=== PATIENT | female | born 1960 | race Caucasian/White ===

== ENCOUNTER 2019-07-27 15:47 | Outpatient (CLI) | payer MEDICARE, MEDICAID, SELFPAY ==
--- NOTE | ~2019-07-27 | CT_ITS ---
EXAMINATION: CT abdomen pelvis wo con DATE: 07/27/2019 16:05 INDICATION: Hematuria TECHNIQUE: Computed tomography (CT) of the abdomen and pelvis was performed without intravenous contr ast. The dose-length product was 1283.26 mGy-cm. Automated exposure control and iterative reconstruct ion technique were employed. COMPARISON: None. FINDINGS: There is right middle lobe atelectasis/scarring. Heart size normal. There is coronary ather osclerosis. There is atherosclerosis of the aorta. There are calcified granulomas of the liver and spleen. There are gallstones. The pancreas and adrena l glands are unremarkable. There are multiple bilateral renal stones. No ureteral stones or hydroneph rosis. Nonobstructing bowel gas pattern. No evidence for appendicitis. No free air or free fluid. There is a curvilinear radiopaque material posterior to the rectum, possibly postsurgical. Moderate lower thora cic and mild lumbar spondylosis. IMPRESSION: 1. Nonobstructing bilateral nephrolithiasis. 2: Cholelithiasis. 3: Right middle lobe atelectasis/scarring. Reviewed, dictated and finalized at location A.
== END 2019-07-27 15:48 | disposition home or self-care (01) ==
PROVIDERS: PCP Internal Medicine; Visit Provider Internal Medicine
DX: R31.9 Hematuria, unspecified (principal); N20.0 Calculus of kidney; K80.20 Calculus of gallbladder without cholecystitis without obstruction; J98.11 Atelectasis
CPT/HCPCS: 74176

== ENCOUNTER 2020-03-17 12:38 | Outpatient (CLI) | payer MEDICARE, MEDICAID, SELFPAY ==
--- NOTE | ~2020-03-17 | XR_ITS ---
EXAMINATION: XR hand LT min 3V INDICATION: Left hand pain TECHNIQUE: Three views of the left hand are obtained. COMPARISON: None available FINDINGS: There is severe osteoarthritis at the triscaphe and first carpometacarpal joints. Moderate osteoarthritis is noted in multiple interphalangeal joints. There is an old ulnar styloid avulsion fr acture with nonunion. No acute fracture is identified. The soft tissues are unremarkable. IMPRESSION: 1. Osteoarthritis without acute osseous abnormality. Reviewed, dictated and finalized at location A. 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
== END 2020-03-17 12:39 | disposition home or self-care (01) ==
LOC: ANHBWCIMG 12:41
PROVIDERS: PCP Internal Medicine; Visit Provider Orthopaedic Surgery
DX: M19.042 Primary osteoarthritis, left hand (principal)
CPT/HCPCS: 73130

== ENCOUNTER 2020-03-31 21:07 | Emergency (ER) | payer MEDICARE, MEDICAID, SELFPAY ==
--- NOTE | ~2020-03-31 | CT_ITS ---
EXAMINATION: CT abdomen pelvis wo con DATE: 03/31/2020 22:24 INDICATION: Flank pain. Ureteral stent removal today. TECHNIQUE: Computed tomography (CT) of the abdomen and pelvis was performed without intravenous contr ast. Automated exposure control and iterative reconstruction technique were employed. The dose-length product was 1320.77 mGy-cm. COMPARISON: CT abdomen and pelvis 07/27/2019 FINDINGS: The visualized portions of the lung bases demonstrate mild atelectasis. There are centrilob ular nodules in basilar right lower lobe, consistent with pneumonia. No pleural effusion. The heart s ize is normal. No pericardial effusion. Calcifications in the liver and spleen are consistent with ol d granulomatous disease. There are gallstones in the gallbladder, which is normal in size. The pancre as and right adrenal gland are normal. There is chronic thickening of left adrenal gland, likely lanre gn. There is medullary nephrocalcinosis bilaterally. There are approximately 8 stones in right kidney measuring up to 4 mm. There are greater than 10 stones in left kidney. The largest stone or cluster of stones measures 7 mm. There is mild left hydronephrosis and hydroureter. There is a focus of gas i n the bladder lumen from recent instrumentation. There is fat stranding around the left ureter, consi stent with edema versus inflammation. There are no dilated loops of bowel. The appendix is normal. Th ere are no pathologically enlarged lymph nodes. Prominent fat in right inguinal canal may be a hernia . There is no free intraperitoneal fluid. There is severe osteoarthritis of the hips. There is chroni c anterior wedging of multiple thoracic vertebral bodies. There is moderate thoracolumbar spondylosis . IMPRESSION: 1. Bilateral nonobstructing kidney stones. 2. Mild left hydronephrosis and hydroureter. Fat stranding around the left ureter may be edema or inf lammation. 3. Mild pneumonia in basilar right lower lobe. Reviewed, dictated and finalized at location A. 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 Bilateral nonobstructing kidney stones. 2. Mild left hydronephrosis and hydroureter. Fat stranding around the left uret er may be edema or inflammation. 3. Mild pneumonia in basilar right lower lobe.
[2020-03-31 21:10] VITALS: BP 184/105; PULSE 100; RESP 20; TEMP 36.2; O2SAT 100
[2020-03-31] MEDS: SODIUM CHLORIDE 0.9% IV 1,000 ML 999 ML IV CONT (22:08)
[2020-03-31] MEDS: HYDROmorphone HCL INJ (*CRX) 1 MG/ML SYR IV PUSH (22:08)
[2020-03-31] MEDS: ONDANSETRON INJ 4 MG/2 ML VIAL IV PUSH (22:08)
--- NOTE | 2020-03-31 22:19 | ED.GENADULT ---
HPI - General Adult General Chief complaint: Urogenital-Female Stated complaint: left sided flank pain Time Seen by Provider: 03/31/20 21:57 History of Present Illness HPI narrative: Patient 59-year-old female who presents the emergency department with chief complaint of left flank pain. Patient reports that she had a lithotripsy and stent placement at [facility] and reported that today she was told that she could remove the stent. Patient states that after she remove the stent approximately 45 minutes later she started having left-sided flank pain. The patient states the pain feels as though whenever she is passing stones but this actually feels worse than it did initially the patient denies fever denies chills Related Data Home Medications Medication Instructions Recorded Confirmed albuterol sulfate 90 mcg/actuation 1 inh INHALATION Q4H 03/17/20 03/24/20 aerosol inhaler citalopram 40 mg tablet 40 mg PO DAILY 03/17/20 03/24/20 cyclobenzaprine 10 mg tablet 10 mg PO TID 03/17/20 03/24/20 meloxicam 15 mg PO DAILY 03/17/20 03/24/20 omeprazole magnesium 40 mg PO DAILY 03/17/20 03/24/20 trazodone 100 mg tablet 100 mg PO DAILY 03/17/20 03/24/20 irbesartan 75 mg PO DAILY 03/24/20 03/24/20 Allergies Allergy/AdvReac Type Severity Reaction Status Date / Time No Known Allergies Allergy Verified 03/31/20 21:08 Review of Systems Review of Systems: Narrative: A 10 system review of systems was completed on the patient and is negative except for what is stated in the HPI. Nursing and ancillary documentation was reviewed. [facility] Past Medical History Medical History Anxiety Arthritis Arthritis of carpometacarpal (CMC) joint of left thumb Congestion of nasal sinus Constipation GERD (gastroesophageal reflux disease) Kidney stones Trigger finger, left ring finger Urinary frequency Wears glasses Weight gain Wheezing Surgical History Surgical History History of cervical spinal surgery 2 vertebrae in neck replaced 2013 History of hand surgery Ring trigger finger 2015, Dr. Correa History of left knee surgery Dr. Correa, 1997 History of shoulder surgery Right shoulder 2003, collar bone Dr. Correa History of surgery fistula repair [id number] History of surgery on wrist left wrist ganglion cyst removal Family History Family History Sibling Family history of lung cancer Other Family history of allergic disorder Family history of malignant neoplasm Hypertension Lung disease Social History Social History Smoking packs per day: 0.75 Smoking cigarettes per day: 15.0 Years smoked: 45 Smoking pack-years: 33.75 Smoking status: Current every day smoker Tobacco type: cigarettes Alcohol intake: never Substance use: current Substance use type: marijuana Gender identity (if verbalized by the patient): Female Spiritual care concerns: No Comments Past medical history significant for kidney stones Surgical history is lithotripsy and ureteral stent placement Exam Narrative: Exam Narrative: GENERAL: Well-appearing, well-nourished, and in moderate pain distress. HEAD: Normocephalic, atraumatic. EYES: PERRLA and EOMI. ENT: Nares clear, no rhinorrhea or epistaxis. Mucous membranes moist. NECK: Supple. CHEST: Clear to auscultation. No respiratory distress. HEART: Regular rate and rhythm. No murmur heard. Normal peripheral pulses. ABDOMEN: Soft, nontender, nondistended, normal active bowel sounds. EXTREMITIES: Normal range of motion. No edema. SKIN: Warm, dry, no rash. NEURO: No focal deficits. Alert and oriented x3. PSYCH: Normal mood and affect. Course Vital Signs Vital signs: Vital Signs Temperature 36.2 C L 03/31/20 21:1
[2020-03-31 23:00] VITALS: BP 179/94; PULSE 89; RESP 18; O2SAT 98
[2020-03-31 23:01] LABS: Basophils Absolute Auto 0.1 K/mm3 (0.0-0.1); Basophils Percent Auto 0.4 % (0.2-1.2); Eosinophils Absolute Auto 0.2 K/mm3 (0-0.3); Eosinophils Percent Auto 1.3 % (0-4.4); Hematocrit 44.2 % (37.0-47.0); Hemoglobin 14.5 g/dL (12.0-15.0); Immature Granulocyte Percent A 0.5 % (0-0.5); Lymphocytes Absolute Auto 2.52 K/mm3 (0.9-3.2); Lymphocytes Percent Auto 13.8 % (18.3-44.2); Mean Corpuscular HGB Conc 32.8 g/dl (32-36); Mean Corpuscular Hemoglobin 31.3 pg (26-34); Mean Corpuscular Volume 95.5 fl (80-100); Mean Platelet Volume 9.9 fl (7.4-10.4); Monocytes Absolute Auto 1.1 K/mm3 (0.1-0.6); Monocytes Percent Auto 6.1 % (2.6-8.5); Neutrophils Absolute Auto 14.2 K/mm3 (1.3-6.7); Neutrophils Percent Auto 77.9 % (45.5-73.1); Platelet Count Result 291 k/mm3 (150-375); Red Blood Count 4.63 M/mm3 (4.2-5.4); Red Cell Distribution Width 12.4 % (11.5-14.5); White Blood Count 18.2 K/mm3 (4.5-10.0)
[2020-03-31 23:12] LABS: Anion Gap 6 mmol/L (8-16); Blood Urea Nitrogen 24 mg/dL (7-17); Carbon Dioxide 27 mmol/L (22-30); Chloride 105 mmol/L (98-107); Estimated CRCL calculation 68 ml/min; Estimated Glomerular Filt Rate > 60; Glucose 114 mg/dL (65-105); Potassium 3.8 mmol/L (3.4-5.0); Sodium 138 mmol/L (137-145)
[2020-04-01 00:35] LABS: Add Urine Microscopic? YES; Appearance Urine Clear (Clear); Bacteria Urine Trace /hpf; Bilirubin Urine Negative (Negative); Blood Urine 3+ (Negative); Color Urine Yellow (Yellow); Glucose Urine UA Negative (Negative); Ketones Urine Negative (Negative); Leukocyte Esterase Ur 2+ LEU/UL (Negative); Mucus Urine Rare /lpf; Nitrate Urine Negative (Negative); Protein Urine 2+ mg/dL (Negative); RBC Urine >75 /hpf (0-2); Specific Grav Ur 1.008 (1.001-1.035); Urobilinogen Urine Negative mg/dL (<2.0); WBC Urine >75 /hpf
[2020-04-01] MEDS: HYDROmorphone HCL INJ (*CRX) 1 MG/ML SYR IM (00:47)
[2020-04-01 01:10] VITALS: BP 115/81; PULSE 99; RESP 18; O2SAT 93
== END 2020-04-01 01:10 | disposition home or self-care (01) ==
PROVIDERS: Emergency Provider Emergency Medicine; PCP Internal Medicine
DX: N39.0 Urinary tract infection, site not specified (principal); J18.9 Pneumonia, unspecified organism; N13.2 Hydronephrosis with renal and ureteral calculous obstruction; M18.9 Osteoarthritis of first carpometacarpal joint, unspecified; K21.9 Gastro-esophageal reflux disease without esophagitis; Z87.442 Personal history of urinary calculi; F41.9 Anxiety disorder, unspecified; F17.210 Nicotine dependence, cigarettes, uncomplicated
CPT/HCPCS: 36415; 74176; 80048; 81001; 85025; 87086; 96361; 96372; 96374; 96375; 99284; A9270; J1170; J2405; J7030

== ENCOUNTER → 2020-06-02 04:34 | Outpatient (CLI) | payer MEDICARE, MEDICAID, SELFPAY ==
[2020-06-02 19:57] LABS: SARS-CoV-2 RNA PCR Negative
== END ==
PROVIDERS: PCP Internal Medicine; Visit Provider Orthopaedic Surgery
DX: Z01.812 Encounter for preprocedural laboratory examination (principal); Z20.822 Contact with and (suspected) exposure to COVID-19
CPT/HCPCS: C9803; U0003; U0005

== ENCOUNTER 2020-06-02 08:34 | Outpatient (CLI) | payer MEDICARE, MEDICAID, SELFPAY ==
--- NOTE | 2020-06-02 10:30 | ECG_ITS ---
Measurements Intervals [place] Rate: 79 P: 42 CO: 150 QRS: 42 QRSD: 71 T: 39 QT: 377 QTc: 433 Interpretive Statements SINUS RHYTHM BASELINE ARTIFACT- I, II, III, AVR, AVL, AVF NORMAL ECG Electronically Signed On 06-02-2020 8:54:02 CDT by Moe Banks D.O.
== END 2020-06-02 08:35 | disposition home or self-care (01) ==
LOC: ANHSURGERY 08:39
PROVIDERS: PCP Internal Medicine; Visit Provider Orthopaedic Surgery
DX: Z01.810 Encounter for preprocedural cardiovascular examination (principal); Z87.891 Personal history of nicotine dependence; I10 Essential (primary) hypertension
CPT/HCPCS: 93005

== ENCOUNTER 2020-06-02 09:11 | Outpatient (CLI) | payer MEDICARE, MEDICAID, SELFPAY ==
--- NOTE | ~2020-06-02 | XR_ITS ---
XR chest 2V 06/02/2020 09:37 Indication: Pneumonia. Procedure: 06/02/2020 Comparison: 01/17/2018 Findings: There is right middle lobe airspace consolidation. Heart size normal. Left lung clear. No p leural effusion or pneumothorax. No acute osseous abnormality. Impression: 1: Right middle lobe airspace disease, which may represent a combination of pneumonia and/or atelecta sis. Reviewed, dictated and finalized at location B. Impression: 1: Right middle lobe airspace disease, which may represent a combination of pne umonia and/or atelectasis.
== END 2020-06-02 09:12 | disposition home or self-care (01) ==
LOC: ANHIMG 09:24
PROVIDERS: PCP Internal Medicine; Visit Provider Internal Medicine
DX: J18.9 Pneumonia, unspecified organism (principal)
CPT/HCPCS: 71046

== ENCOUNTER 2020-06-05 01:33 | Day surgery (SDC) | payer MEDICARE, MEDICAID, SELFPAY ==
[2020-03-24 12:38] VITALS: BMI 39.0
[2020-05-26 12:29] VITALS: BMI 38.7
--- NOTE | 2020-05-26 12:32 | PC.NURSE ---
Pt states no changes in medications since interview. Medical history information updated. New Covid date/time and pre-op instructions reviewed with pt. Pt denies questions at this time.
--- NOTE | 2020-06-04 09:08 | PM.IMHP ---
H&P: HPI History of Present Illness Date/Time: 06/04/20 09:08 Chief Complaint: Left thumb and ring finger pain Narrative: 59-year-old woman with left thumb pain and trigger deformity of the left ring finger. Continued symptoms despite conservative treatment. Difficulty with gripping and use of the hand. Presents now for operative treatment. Review of Systems Constitutional: Constitutional: Denies fever(s) Eyes: Eyes: Denies blurry vision ENT: Reports Normal hearing present Cardiovascular: Cardiovascular: Denies chest pain and Denies dyspnea Respiratory: Respiratory: Denies dyspnea and Denies wheezing Gastrointestinal: Gastrointestinal: Denies abdominal pain Genitourinary: Genitourinary: Denies urinary urgency Musculoskeletal: Musculoskeletal: Reports as per HPI and Denies numbness Integumentary/Breasts: Skin/Breast: Denies changing lesions and Denies sores Neurologic: Reports Normal hearing present, Denies behavioral changes, Denies confusion, Denies numbness and Denies convulsions Psychiatric: Psychiatric: Denies behavioral changes, Denies confusion and Denies hallucinations Endocrine: Endocrine: Denies heat intolerance Hematologic/Lymphatic: Hematologic/Lymphatic: Denies easy bleeding Allergic/Immunologic: Allergic/Immunologic: Denies wheezing PMF Past Medical History Medical History Anxiety Arthritis Arthritis of carpometacarpal (CMC) joint of left thumb Congestion of nasal sinus Constipation GERD (gastroesophageal reflux disease) Kidney stones Trigger finger, left ring finger Urinary frequency Wears glasses Weight gain Wheezing Surgical History Surgical History History of cervical spinal surgery 2 vertebrae in neck replaced 2013 History of hand surgery Ring trigger finger 2015, Dr. Correa History of left knee surgery Dr. Correa, 1997 History of shoulder surgery Right shoulder 2004, collar bone Dr. Correa History of surgery fistula repair [id number] History of surgery on wrist left wrist ganglion cyst removal Family History Family History Sibling Family history of lung cancer Other Family history of allergic disorder Family history of malignant neoplasm Hypertension Lung disease Social History Social History Smoking packs per day: 0.75 Smoking cigarettes per day: 15.0 Years smoked: 45 Smoking pack-years: 33.75 Smoking status: Current every day smoker Tobacco type: cigarettes Alcohol intake: never Substance use: current Substance use type: marijuana Gender identity (if verbalized by the patient): Female Spiritual care concerns: No Meds Home Medications and Allergies Home Medications Medication Instructions Recorded Confirmed Type albuterol sulfate 90 mcg/actuation 1 inh INHALATION Q4H 03/17/20 05/26/20 History aerosol inhaler citalopram 40 mg tablet 40 mg PO DAILY 03/17/20 05/26/20 History cyclobenzaprine 10 mg tablet 10 mg PO TID 03/17/20 05/26/20 History meloxicam 15 mg PO DAILY 03/17/20 05/26/20 History omeprazole magnesium [Prilosec OTC] 40 mg PO DAILY 03/17/20 05/26/20 History trazodone 100 mg tablet 100 mg PO DAILY 03/17/20 05/26/20 History irbesartan 75 mg PO DAILY 03/24/20 05/26/20 History Allergies Allergy/AdvReac Type Severity Reaction Status Date / Time No Known Allergies Allergy Verified 03/31/20 21:08 Exam Const: General: healthy appearing; No in distress or confusion Orientation/consciousness: oriented to person, oriented to place, oriented to time and No confusion HENMT: Head: normal to inspection, normocephalic and atraumatic Eyes: Conjunctivae: conjunctivae normal Sclera: sclerae normal Neck: Neck: supple and nontender Resp: Effort & Inspection: normal respiratory effort
--- NOTE | 2020-06-04 11:02 | WPDANESEPPF ---
Anes - Initial Pre Proc Eval Procedure: Operation Date: 06/05/20 07:30 Proposed Procedures p Left Thumb Carpal Metacarpal Arthroplasty, Release Left Ring Trigger Finger - Stevie Lee MD Date/Time: 06/04/20 11:02 Surgeon: Stevie Lee MD Pre Op Diagnosis: Left Thumb CMC Arthritis, Left Trigger Ring Finger Patient Data Age: 59 Gender: F Height: 1.61 m Weight: 100.7 kg Allergies Allergy/AdvReac Type Severity Reaction Status Date / Time No Known Allergies Allergy Verified 06/05/20 06:07 Home Medications Medication Instructions Recorded Confirmed Type albuterol sulfate 90 mcg/actuation 1 inh INHALATION Q4H 03/17/20 06/05/20 History aerosol inhaler citalopram 40 mg tablet 40 mg PO DAILY 03/17/20 06/05/20 History cyclobenzaprine 10 mg tablet 10 mg PO TID 03/17/20 06/05/20 History meloxicam 15 mg PO DAILY 03/17/20 06/05/20 History omeprazole magnesium [Prilosec OTC] 40 mg PO DAILY 03/17/20 06/05/20 History trazodone 100 mg tablet 100 mg PO DAILY 03/17/20 06/05/20 History irbesartan 75 mg PO DAILY 03/24/20 06/05/20 History Patient hx anesthesia problems: none Family hx anesthesia problems: none PMFSH Past Medical History Medical History (Updated 06/04/20 @ 11:03 by Collin Suggs MD) Anxiety Arthritis Arthritis of carpometacarpal (CMC) joint of left thumb Congestion of nasal sinus Constipation GERD (gastroesophageal reflux disease) Kidney stones Obesity Trigger finger, left ring finger Urinary frequency Wears glasses Weight gain Wheezing Surgical History Surgical History History of cervical spinal surgery 2 vertebrae in neck replaced 2013 History of hand surgery Ring trigger finger 2015, Dr. Correa History of left knee surgery Dr. Correa, 1997 History of shoulder surgery Right shoulder 2003, collar bone Dr. Correa History of surgery fistula repair [id number] History of surgery on wrist left wrist ganglion cyst removal Family History Family History Sibling Family history of lung cancer Other Family history of allergic disorder Family history of malignant neoplasm Hypertension Lung disease Social History Social History Smoking packs per day: 0.75 Smoking cigarettes per day: 15.0 Years smoked: 45 Smoking pack-years: 33.75 Smoking status: Current every day smoker Tobacco type: cigarettes Alcohol intake: never Substance use: current Substance use type: marijuana Living arrangements: alone Gender identity (if verbalized by the patient): Female Spiritual care concerns: No Anes - Eval Final PreProcedure Day of Procedure 06/04/20 11:02 Patient weight: obese Heart: regular rate and rhythm Lungs: clear to auscultation and normal air movement Airway: Mallampati scale class II Neurological: alert and oriented Last oral intake: >/= 8 hours ASA classification: III Emergent: no Anesthetic plan: proceed Anesthesia type and monitoring: general GIVS and LMA Informed Consent: The patient's anesthetic plan and its attendant risks and benefits were discussed with the patient/family/POA. Questions were solicited and answers provided to the satisfaction of the patient/family/POA.
--- NOTE | 2020-06-04 11:07 | WPDANESPNB ---
Anes - Peripheral Nerve Block Date/Time: 06/04/20 11:07 I have discussed with the patient/family/POA the placement of a peripheral nerve block for post-operative pain management, including associated risks, benefits, complications, and side effects. Alternative methods of post-operative analgesia were detailed. Questions were solicited and answers provided to the satisfaction of the patient/family/POA. Time-Out: A pre-procedural Time-Out was completed immediately before starting the procedure and confirmed: Patient Identification, Site, Procedure, Patient Position and the Availability of Requisite Equipment. Clinical Indications: Acute post-operative pain management requested by the operative surgeon. Nerve Block Insertion Note Needle: 22 gauge, stimulating, insulated echogenic needle.
[2020-06-05] VITALS (12 sets, daily range): BP systolic 101–142; BP diastolic 62–91; PULSE 67–88; RESP 16–20; TEMP 36–36.3; O2SAT 91–100
--- NOTE | ~2020-06-05 | XR_ITS ---
XR surgery orthopedic 06/05/2020 08:40 Indication: Left thumb arthroplasty Procedure: 3 fluoroscopic views left wrist. 27 seconds of fluoroscopy. Comparison: No prior studies for comparison. Findings: There are surgical changes consistent with resection of the trapezium. There is associated soft tissue gas. Please refer to procedural report for details. Impression: 1: Status post recent resection of the trapezium. Reviewed, dictated and finalized at location B. Impression: 1: Status post recent resection of the trapezium.
--- NOTE | 2020-06-05 06:43 | WPDHPUPDATE1 ---
History and Physical Update Update Date/Time: 06/05/20 06:43 History and Physical has been reviewed, including an updated exam of the patient. There are NO changes in the patient's condition. Covid test negative. Risks, benefits, and alternatives have been discussed and questions answered. Patient agrees to proceed with procedure.
[2020-06-05] MEDS: LACTATED RINGERS 1,000 ML 30 ML IV CONT ×2 (06:50→08:54)
[2020-06-05] MEDS: ACETAMINOPHEN 500 MG TABLET 1000 MG PO (06:50)
[2020-06-05] MEDS: KETOROLAC 15 MG/ML VIAL (*BKC) IV PUSH (06:52)
[2020-06-05] MEDS: ceFAZolin 2 GM/D5W 50 ML 2 GM/50 ML BAG IVPB (07:27)
[2020-06-05] MEDS: BUPIVACAINE HCL 0.5% PF 30 ML VIAL INFILTRATE (07:57)
--- NOTE | 2020-06-05 09:17 | P.OP_ITS ---
Procedure Note - Detailed Date of procedure: 06/05/20 Pre-op diagnosis: Left Thumb CMC Arthritis, Left Trigger Ring Finger Post-op diagnosis: same Procedure performed: Left CMC arthroplasty with trapezii ectomy, ring trigger finger release Description of procedure: Indications: Patient is a 59-year-old woman with left thumb carpometacarpal joint arthritis. She has failed conservative treatment. In addition, trigger deformity of the ring finger of the left hand. Previous injection with some relief. Now with recurrence of symptoms. She presents for operative treatment of both. What was done: Patient identified in the preoperative holding. Informed consent given. Operative extremity marked. Patient received intravenous antibiotics. Patient brought to the operating room where underwent general anesthetic by anesthesia team. Positioned supine on operating room table. Time-out performed confirming the patient, site of the surgery and the plan. Left upper extremity prepped draped usual sterile surgical fashion using a ChloraPrep skin solution. Hand and wrist exsanguinated and an arm tourniquet inflated to 250 mmHg. Longitudinal incision made at the border between the palmar and dorsal skin over the base of the thumb with a 15 blade knife. Hemostasis controlled electrocautery. Care taken to retract the neurovascular elements. Capsule was incised line with skin incision. The trapezium was identified with use of fluoroscopy. We then shelled out the trapezium as 1 unit and this. Suspension plasty then performed with the Arthrex internal brace. A guide hole was placed in base of the 2nd metatarsal. Second hole placed at the base of 1st metatarsal. The suture bridge was then attached with PushLock anchors. Good suspension noted. The thumb was held and abducted extended position for the repair. Wound thoroughly irrigated with antibiotic solution. The tourniquet was released meticulous hemostasis obtained. Capsule then repaired with 3 O Monocryl interrupted suture. Subcutaneous tissue repaired for interrupted 3 O Monocryl suture and skin repaired with 4 O nylon running suture. Ring finger then addressed. Incision made using the palmar crease over the A1 ana with a 15 blade knife. Hemostasis controlled electrocautery. Retractors placed and the flexor tendon and A1 ana sheath identified. Release of the A1 ana under direct visualization with a 15 blade knife using a elevator to protect the tendon deep to the sheath. The finger then taken through range of motion and noted to be released. Tendon itself inspected and noted to have mild degenerative changes. Wound thoroughly irrigated and closed with 4 0 nylon interrupted suture. Sterile dressing applied. Padded splint then applied. The patient was then woken from anesthesia, extubated and taken to the recovery room in stable condition. All sponge, needle, instrument counts were correct at the end of the case. Implants: Arthrex 2.0 mm internal brace. 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
[2020-06-05] MEDS: oxyCODONE HCL (*CRX) 5 MG TAB IR PO (11:00)
== END 2020-06-05 11:51 | disposition home or self-care (01) ==
PROVIDERS: PCP Internal Medicine; Visit Provider Orthopaedic Surgery
PROC: (CPT 25447; principal; 2020-06-05 07:30)
DX: M18.9 Osteoarthritis of first carpometacarpal joint, unspecified (principal); M65.342 Trigger finger, left ring finger; K21.9 Gastro-esophageal reflux disease without esophagitis; F32.9 Major depressive disorder, single episode, unspecified; E66.9 Obesity, unspecified; Z68.38 Body mass index [BMI] 38.0-38.9, adult; F17.210 Nicotine dependence, cigarettes, uncomplicated
CPT/HCPCS: 25447; 26055; 71046; 93005; A4565; A9270; C9803; J0690; J1100; J1885; J2250; J2405; J2704; J3010; J7120; U0003; U0005

== ENCOUNTER 2020-07-04 13:31 | Outpatient (CLI) | payer MEDICARE, MEDICAID, SELFPAY ==
--- NOTE | ~2020-07-04 | CT_ITS ---
EXAMINATION: CT diagnostic chest wo con DATE: 07/04/2020 13:52 INDICATION: Infiltrate of the lung TECHNIQUE: Computed tomography (CT) of the chest was performed without intravenous contrast. The dose -length product (DLP) was 938.72 mGy-cm. Automated exposure control and iterative reconstruction tech nique were employed. COMPARISON: 06/02/2020; CT dated 03/31/2020 FINDINGS: There is atelectasis of the right middle lobe. This has appears to have improved since the recent comparison radiograph and was not identified on the quality control microbiology supervisor radiograph from the CT performed on 03/31/2020. Calcified pulmonary nodules and calcified right hilar lymph nodes are consistent with old granulomatous disease. The heart size is normal. There are no pathologically enlarged thoracic lymph nodes. Calcified coronary artery atherosclerosis is noted. There is severe thoracic spondylosis. [place] calcifications in otherwise normal appearing liver and spleen likely represent healed granulomat ous disease. There are nonobstructing stones of the left kidney. There is chronic thickening of the left adrenal gland. There is severe thoracic spondylosis. IMPRESSION: 1. Right middle lobe atelectasis which appears to have improved since the recent chest radiograph. Ra diographic follow-up to resolution is recommended. Reviewed, dictated and finalized at location B. IMPRESSION: 1. Right middle lobe atelectasis which appears to have improved since the recen t chest radiograph. Radiographic follow-up to resolution is recommended.
== END 2020-07-04 13:32 | disposition home or self-care (01) ==
PROVIDERS: PCP Internal Medicine; Visit Provider Internal Medicine
DX: R91.8 Other nonspecific abnormal finding of lung field (principal); J98.11 Atelectasis
CPT/HCPCS: 71250

== ENCOUNTER 2020-09-01 12:39 | Outpatient (CLI) | payer MEDICARE, MEDICAID, SELFPAY ==
--- NOTE | ~2020-09-01 | XR_ITS ---
XR hand LT min 3V 09/01/2020 12:52 Indication: Pain base of the thumb. Procedure: 3 views left hand Comparison: 03/17/1909/26/2020 and 06/10/2020 Findings: There are changes of surgical resection of the trapezium. There is deformity of the base of the first metacarpal and trapezoid, also likely post surgical. Osteopenia. No significant change fro m 06/10/2020. Old ulnar styloid avulsion fracture. There is mild-moderate polyarticular osteoarthriti s. Impression: 1: Stable deformity of the left wrist, consistent with postsurgical change. Correlate clinically. No significant interval change from 06/10/2020 allowing for differences of technique. Reviewed, dictated and finalized at location A. Impression: 1: Stable deformity of the left wrist, consistent with postsurgical change. Cor relate clinically. No significant interval change from 06/10/2020 allowing for differences of technique.
== END 2020-09-01 12:40 | disposition home or self-care (01) ==
LOC: ANHBWCIMG 12:39
PROVIDERS: PCP Internal Medicine; Visit Provider Orthopaedic Surgery
DX: M79.642 Pain in left hand (principal); Z98.890 Other specified postprocedural states
CPT/HCPCS: 73130

== ENCOUNTER 2020-09-04 11:39 | Outpatient (CLI) | payer MEDICARE, MEDICAID, SELFPAY ==
--- NOTE | ~2020-09-04 | XR_ITS ---
EXAMINATION: XR chest 2V EXAM DATE: 09/04/2020 11:54 INDICATION: Atelectasis. TECHNIQUE: Frontal and lateral projections of the chest obtained and reviewed. Comparison is made to prior examination from 06/02/2020, 01/17/2018. FINDINGS: Previously seen triangular-shaped right middle lobe opacity has nearly resolved, with just small linear residual scarring. There is right upper lobe granuloma. The lungs are otherwise clear. Cardiomediastinal silhouette is normal. There is no pneumothorax suspected. There are no pleural effu sions. Lower cervical interbody fusion markers. There are bony degenerative changes. IMPRESSION: 1. Small post infectious residua. Reviewed, dictated and finalized at location B.
== END 2020-09-04 11:40 | disposition home or self-care (01) ==
PROVIDERS: PCP Internal Medicine; Visit Provider Internal Medicine
DX: J98.11 Atelectasis (principal)
CPT/HCPCS: 71046

== ENCOUNTER 2020-09-10 08:13 | Emergency (ER) | payer MEDICARE, MEDICAID, SELFPAY ==
--- NOTE | ~2020-09-10 | XR_ITS ---
XR finger 2nd RT min 2V DATE: 09/10/2020 08:38 INDICATION: Multiple recent injuries over 2 months. Pain with flexion of the digits. TECHNIQUE: 4 views COMPARISON: None FINDINGS: There is osteoarthritic change at the first carpometacarpal joint. There is osteoarthritis at the second metacarpophalangeal and the proximal and distal interphalangeal joints of the second digit. No fracture, dislocation, periosteal reaction or bone destruction of the second digit is detected. IMPRESSION: Polyarticular osteoarthritis Reviewed, dictated and finalized at location B.
[2020-09-10 08:21] VITALS: BP 161/96; PULSE 104; RESP 18; TEMP 36.8; O2SAT 96
--- NOTE | 2020-09-10 08:27 | ED.EXTPRO ---
HPI - Extremity Problem General Chief complaint: Extremity Injury, Upper Stated complaint: Possible injury to Finger on right Hand Time Seen by Provider: 09/10/20 08:45 Source: patient and RN notes reviewed Mode of arrival: ambulatory Limitations: no limitations History of Present Illness HPI Narrative: 59-year-old female presents with concern for pain, swelling, decreased range of motion to the second digit of the right hand. Reports symptoms have been present for 1 to 2 months, denies any memorable injury. Reports she jammed the finger several times. She is right-hand dominant. She denies any open skin, redness, warmth. Reports she has been using ice, meloxicam, splinting it with no relief. MD Complaint: extremity pain and extremity swelling Related Data Home Medications Medication Instructions Recorded Confirmed albuterol sulfate 90 mcg/actuation 1 inh INHALATION Q4H 03/17/20 09/01/20 aerosol inhaler citalopram 40 mg tablet 40 mg PO DAILY 03/17/20 09/01/20 cyclobenzaprine 10 mg tablet 10 mg PO TID 03/17/20 09/01/20 meloxicam 15 mg PO DAILY 03/17/20 09/01/20 omeprazole magnesium [Prilosec OTC] 40 mg PO DAILY 03/17/20 09/01/20 trazodone 100 mg tablet 100 mg PO DAILY 03/17/20 09/01/20 irbesartan 75 mg PO DAILY 03/24/20 09/01/20 Allergies Allergy/AdvReac Type Severity Reaction Status Date / Time No Known Allergies Allergy Verified 09/10/20 08:56 Review of Systems Review of Systems: CONSTITUTIONAL: Denies malaise, chills, sweats, or fever. SKIN: Denies rash, itching, lacerations or abrasions. MUSCULOSKELETAL: Reports decreased range of motion, swelling, pain in the second digit of the right hand NEUROLOGIC: Denies numbness, weakness All systems reviewed & are unremarkable except as noted in HPI and below PMFSH Past Medical History Medical History (Updated 09/10/20 @ 09:16 by Eli Guy NP) Anxiety Arthritis Arthritis of carpometacarpal (CMC) joint of left thumb Arthritis of hand, right Congestion of nasal sinus Constipation De Quervain's tenosynovitis, left GERD (gastroesophageal reflux disease) Kidney stones Obesity Trigger finger, left ring finger Urinary frequency Wears glasses Weight gain Wheezing Surgical History Surgical History History of cervical spinal surgery 2 vertebrae in neck replaced 2014 History of hand surgery Ring trigger finger 2015, Dr. Correa History of left knee surgery Dr. Correa, 1997 History of shoulder surgery Right shoulder 2003, collar bone Dr. Correa History of surgery fistula repair [id number] History of surgery on wrist left wrist ganglion cyst removal Family History Family History Sibling Family history of lung cancer Other Family history of allergic disorder Family history of malignant neoplasm Hypertension Lung disease Social History Social History Smoking packs per day: 0.75 Smoking cigarettes per day: 15.0 Years smoked: 45 Smoking pack-years: 33.75 Tobacco type: cigarettes Alcohol intake: never Substance use: current Substance use type: marijuana Gender identity (if verbalized by the patient): Female Spiritual care concerns: No Comments At time of signature, agree with nursing past medical, surgical, social and family history. There is no relevant family history pertinent to the presenting complaint Exam Narrative: GENERAL: Well-appearing, well-nourished, and in no acute distress. HEAD: Normocephalic EYES: PERRLA, conjunctivae clear NECK: Supple. CHEST: Speaks in full sentences. No respiratory distress. HEART: Regular rate and rhythm. Normal and equal peripheral pulses. EXTREMITIES: First digit of right hand has normal strength and sensation. Range of motion limited, patient unable to fully flex the digit. No clubbing, cyanosis noted. Mild
--- NOTE | 2020-09-10 09:03 | PC.NURSE ---
PT DECLINED ICE FOR COMFORT
== END 2020-09-10 09:20 | disposition home or self-care (01) ==
PROVIDERS: Emergency Provider Nurse Practitioner; PCP Internal Medicine
DX: M19.041 Primary osteoarthritis, right hand (principal); M25.641 Stiffness of right hand, not elsewhere classified; F17.210 Nicotine dependence, cigarettes, uncomplicated; M18.9 Osteoarthritis of first carpometacarpal joint, unspecified; K21.9 Gastro-esophageal reflux disease without esophagitis; E66.9 Obesity, unspecified; Z68.39 Body mass index [BMI] 39.0-39.9, adult
CPT/HCPCS: 29130; 73140; 99213; G0463

== ENCOUNTER 2020-11-28 15:50 | Outpatient (CLI) | payer OTHER, SELFPAY ==
--- NOTE | ~2020-11-28 | XR_ITS ---
EXAMINATION: XR chest 2V 11/28/2020 16:05 INDICATION: Acute bronchitis. PROCEDURE: 2 view chest COMPARISON: Comparison to multiple prior studies sequentially, with oldest reviewed study dated 08/2016. FINDINGS: The lungs are clear. The cardiomediastinal silhouette is within normal limits. There are no pleural effusions. There is no pneumothorax suspected. Calcified granuloma right apex. IMPRESSION: 1: NO ACUTE CARDIOPULMONARY DISEASE. Reviewed, dictated and finalized at location B.
== END 2020-11-28 15:51 | disposition home or self-care (01) ==
LOC: ANHIMG 15:53
PROVIDERS: PCP Internal Medicine; Visit Provider Internal Medicine
DX: J20.9 Acute bronchitis, unspecified (principal)
CPT/HCPCS: 71046

== ENCOUNTER 2020-12-08 13:30 | Outpatient (RCR) | payer OTHER, SELFPAY ==
--- NOTE | 2020-11-04 10:12 | OTOPEVAL ---
OCCUPATIONAL THERAPY INITIAL EVALUATION REPORT 11/04/20 Thank you for referring Tracy Larson to [facility].? The patient is scheduled to be seen for therapy? 2x/week for 4 weeks. Please review, sign, date and return this plan of care KHALIF. I agree with and certify that the following plan of care is medically necessary. Referring Physician Date Referring Provider: Stevie Lee MD *OT Outpatient Evaluation Start: 11/04/20 09:11 Therapy Assessment Status Assessment Status Assessment Status Evaluation Outpatient Past Medical History Past Medical History Source of Past Medical History Recalled from Previous Visit, Confirmed with Patient/Family Neurological History Hx Neurological Disorders No Significant History Cardiovascular History Hx Hypertension Yes: h/o, no longer takes meds Respiratory History Hx Bronchitis Yes Gastrointestinal History Hx Gastroesophageal Reflux Disease Yes Genitourinary History Hx Kidney Stones Yes: LITHO Musculoskeletal History Hx Arthritis Yes: LT THUMB CMC s/p trapezectomy w/ Arthrex internal brace Hx Degenerative Disk Disease Yes Hx Orthopedic Surgery Yes: L ring trigger finger release, R middle finger trigger release Hx Spinal Surgery Yes Hematological History Hx Hematological Disorders No Significant History Endocrine History Hx Endocrine Disorders No Significant History HEENT History Hx Sinus Problems Yes Integumentary History Hx Skin Disorders No Significant History Psychosocial History Hx Anxiety Yes Pain History History of Any Previous or Ongoing No Significant History Instance of Pain Anesthesia History Hx Anesthesia Reactions No Significant History Evaluation Information Problem Diagnosis Pain in right hand, pain in left hand Additional Evaluation Detail Patient has history of: 05/11/20: Left thumb trapeziectomy w/ Arthrex internal brace, left ring trigger finger release. Had 3 therapy visits. Subjective Information Patient reports right hand Query Text:As Reported By Patient/ index finger has stabbing Family pain, stiffness, and swelling. She reports reduced ROM. X- rays show OA. Left hand trapeziectomy continues to give her issues. She has it wrapped with an oliverio wrap and that
--- NOTE | 2020-11-11 08:42 | PCOTNOTE ---
Patient called & cancelled scheduled appointment this date due to being out of town.
--- NOTE | 2020-11-18 11:23 | PCOTNOTE ---
Patient did not show up for scheduled appointment this date. Called patient and left a voicemail informing of next appointment.
--- NOTE | 2020-11-20 08:12 | PCOTNOTE ---
Patient called & cancelled scheduled appointment this date due to having a fever and not feeling well.
--- NOTE | 2020-11-25 10:50 | PCOTNOTE ---
Patient called & cancelled scheduled appointment this date due to being sick.
--- NOTE | 2020-11-27 15:37 | PCOTNOTE ---
Patient did not show up for scheduled appointment this date. Called patient and left voicemail regarding missed appt and reminded of next appt.
--- NOTE | 2020-12-08 14:29 | OTOPEVAL ---
OCCUPATIONAL THERAPY RE-EVALUATION REPORT AND DISCHARGE SUMMARY 12/08/20 Tracy presents today for OT re-evaluation for bilateral hand pain. As described below, she has made excellent progress with pain reduction, improved ROM, and improved strength which has carried over into being able to complete household tasks and ADLs with her left hand again. She is currently independent with HEP to continue to work on strengthening of the left hand. She is also independent with right index finger splinting for trigger finger. She understands to taper off the splint as her pain subsides. No further skilled OT indicated at this time. Patient is in agreement with discharge. Thank you for referring Tracy Larson to [facility].? Please review, sign, date and return this D/C Note KHALIF. I agree with and certify that the following plan of care is medically necessary. Referring Physician Date Referring Provider: Stevie Lee MD *OT Outpatient Re-Evaluation Start: 11/04/20 09:11 Problem Diagnosis Pain in right hand, pain in left hand Additional Evaluation Detail Patient has history of: 05/11/20: Left thumb trapeziectomy w/ Arthrex internal brace Subjective Information Patient reports improvements Query Text:As Reported By Patient/ in left wrist/thumb ROM and Family she states she has a lot less pain. She no longer wraps the wrist with an oliverio bandage for support. 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 She reports some residual soreness after she does her putty HEP. She has been wearing a splint on her index finger. She has signs and symptoms of a trigger finger. The splint has been helping reduce the pain and inflammation of the flexor tendon. Pain Assessment Timing of Pain Assessment Timing of Pain Assessment Re-assessment Pain Scale Pain Scale Used Numeric (1 - 10) Self Report Pain Assessment Left Wrist(s) Reported Pain Level 1 Pain Description Soreness,Tightness Lowest Pain Intensity 0 Greatest Pain Intensity 8 Pain Score Pain Score 1: Self Report Additional Pain Score Comments Patient was regularly coming in at 10/17. Marked improvement with pain reduction since the start of care. Interventions Used Interventions Used By Clinicians Education,Exercise,P
== END 2020-12-08 17:37 | disposition home or self-care (01) ==
LOC: ANHOT 13:30
PROVIDERS: PCP Internal Medicine; Visit Provider Orthopaedic Surgery
DX: M79.641 Pain in right hand (principal); M79.642 Pain in left hand
CPT/HCPCS: 97018; 97110; 97166; L3933

== ENCOUNTER 2021-02-10 13:30 | Outpatient (RCR) | payer OTHER, SELFPAY ==
--- NOTE | 2021-01-20 11:00 | OTOPEVAL ---
OCCUPATIONAL THERAPY EVALUATION REPORT 01/20/21 Thank you for referring Tracy Larson to [facility].? The patient is scheduled to be seen for therapy? 1-2x/week for 4 weeks. Please review, sign, date and return this plan of care KHALIF. I agree with and certify that the following plan of care is medically necessary. Referring Physician Date Referring Provider: Stevie Lee MD *OT Outpatient Evaluation Start: 01/20/21 09:50 Outpatient Past Medical History Neurological History Hx Neurological Disorders No Significant History Cardiovascular History Hx Hypertension Yes: h/o, no longer takes meds Respiratory History Hx Bronchitis Yes Gastrointestinal History Hx Gastroesophageal Reflux Disease Yes Genitourinary History Hx Kidney Stones Yes: LITHO Musculoskeletal History Hx Arthritis Yes: LT THUMB CMC s/p trapezectomy w/ Arthrex internal brace Hx Degenerative Disk Disease Yes Hx Orthopedic Surgery Yes: L ring trigger finger release, R middle finger trigger release Hx Spinal Surgery Yes Hematological History Hx Hematological Disorders No Significant History Endocrine History Hx Endocrine Disorders No Significant History HEENT History Hx Sinus Problems Yes Integumentary History Hx Skin Disorders No Significant History Psychosocial History Hx Anxiety Yes Pain History History of Any Previous or Ongoing No Significant History Instance of Pain Anesthesia History Hx Anesthesia Reactions No Significant History Evaluation Information Problem Diagnosis OA 1st CMC joint left hand, OA right hand Subjective Information Patient is s/p left CMC Query Text:As Reported By Patient/ arthroplasty 05/11/20. She is s/p Family 5 weeks of hand therapy, from Oct-Dec 2020, which helped significantly reduce pain and improve functional strength. She is reporting today some residual pins and needles on the dorsum of the left arm. She states the paresthesias didn't begin until about late Nov 2020. Right index finger has been stiff, sore, and tender, especially upon waking up in the morning. Prior Level of Function Activity Level (Last 3 Months) Hand Dominance Right Pain Assessment Timing of Pain Assessment Timing of Pain Asse
--- NOTE | 2021-02-03 15:26 | PCOTNOTE ---
Patient did not show up for scheduled appointment this date.
--- NOTE | 2021-02-05 13:38 | PCOTNOTE ---
Patient did not show up for scheduled appointment this date.
--- NOTE | 2021-02-20 13:55 | PCOTNOTE ---
Patient cancelled re-eval again. Attempted to call patient to see if we needed to re-eval or if she was ready for discharge. She did not answer.
--- NOTE | 2021-02-20 15:48 | PCOTNOTE ---
OCCUPATIONAL THERAPY DISCHARGE NOTIFICATION 02/20/21 Patient:Tracy Larson Date of :1960 Patient has not returned for any further treatments since 02/10/2021, therefore she will be discharged at this time. Patient?s initial visit was on 01/20/2021 and she had a total of 2 follow up visits. Patient called and cancelled the re-evaluation stating that she no longer needed therapy. Therapy visits consisted of modalities, ROM, and strengthening for dx of arthritic hands bilaterally. It does not appear that there has been much change since the start of care of 01/20/2021. The goals have been partially met. She is independent with HEP. Thank you for referring this patient to [facility]. Please review, sign, date and return this discharge summary KHALIF. I have been updated about the patient's current status and I agree with discharge from the above service at this time. Referring Physician Date Referring Provider: Stevie Lee MD
== END 2021-02-23 09:13 | disposition home or self-care (01) ==
LOC: ANHOT 13:30
PROVIDERS: PCP Internal Medicine; Visit Provider Orthopaedic Surgery
DX: M18.12 Unilateral primary osteoarthritis of first carpometacarpal joint, left hand (principal); M19.041 Primary osteoarthritis, right hand
CPT/HCPCS: 97018; 97035; 97110; 97140; 97165

== ENCOUNTER 2021-03-29 13:13 | Emergency (ER) | payer OTHER, SELFPAY ==
--- NOTE | ~2021-03-29 | XR_ITS ---
XR chest 2V 03/29/2021 13:49 Indication: Shortness of breath. Hypoxia. Fever. Procedure: 2 view chest Comparison: Comparison to multiple prior studies sequentially, with oldest reviewed study dated 01/07. Findings: Heart size normal. Calcified granuloma right upper lung. No focal air space disease, pulmon kelsea edema, pleural effusion or suspected pneumothorax. Impression: 1: No acute cardiopulmonary disease. Reviewed, dictated and finalized at location A. Y ADJUSTER Impression: 1: No acute cardiopulmonary disease.
[2021-03-29 13:25] VITALS: BP 152/66; PULSE 107; RESP 20; TEMP 35.8; O2SAT 92
--- NOTE | 2021-03-29 13:38 | ED.URI ---
HPI - URI/Sore Throat General Chief Complaint: Upper Respiratory Infection Stated Complaint: fever,nose running Time Seen by Provider: 03/29/21 13:38 Source: patient History of Present Illness HPI Narrative: patient presents with cough and fever. patient reports sinus congestion and a hx of copd. patient states symptoms have much improved since she started with her home nebulizer treatments. no shortness of breath and no chest pain. Related Data Home Medications Medication Instructions Recorded Confirmed albuterol sulfate 90 mcg/actuation 1 inh INHALATION Q4H 03/17/20 09/01/20 aerosol inhaler citalopram 40 mg tablet 40 mg PO DAILY 03/17/20 09/01/20 cyclobenzaprine 10 mg tablet 10 mg PO TID 03/17/20 09/01/20 meloxicam 15 mg PO DAILY 03/17/20 09/01/20 omeprazole magnesium [Prilosec OTC] 40 mg PO DAILY 03/17/20 09/01/20 trazodone 100 mg tablet 100 mg PO DAILY 03/17/20 09/01/20 irbesartan 75 mg PO DAILY 03/24/20 09/01/20 Allergies Allergy/AdvReac Type Severity Reaction Status Date / Time No Known Allergies Allergy Verified 09/10/20 08:56 Review of Systems Review of Systems: CONSTITUTIONAL: Denies fever, chills, or sweats. EYES: Denies visual changes, redness, or discharge. ENT: Denies rhinorrhea, congestion, sore throat, or otalgia. CARDIOVASCULAR: Denies chest pain, palpitations, or edema. RESPIRATORY: Denies cough or dyspnea. GASTROINTESTINAL: Denies abdominal pain, nausea, vomiting, or diarrhea. GENITOURINARY: Denies dysuria or hematuria. SKIN: Denies rash or itching. MUSCULOSKELETAL: Denies back pain, joint pain, or myalgia. NEUROLOGIC: Denies headache, numbness, or weakness. PSYCHIATRIC: Denies anxiety or depression. [facility] Past Medical History Medical History (Updated 03/29/21 @ 14:14 by LIZBETH Phelps) Anxiety Arthritis Arthritis of carpometacarpal (CMC) joint of left thumb Arthritis of hand, right Congestion of nasal sinus Constipation De Quervain's tenosynovitis, left GERD (gastroesophageal reflux disease) Kidney stones Obesity Trigger finger, left ring finger Urinary frequency Wears glasses Weight gain Wheezing Surgical History Surgical History History of cervical spinal surgery 2 vertebrae in neck replaced 2014 History of hand surgery Ring trigger finger 2015, Dr. Correa History of left knee surgery Dr. Correa, 1997 History of shoulder surgery Right shoulder 2003, collar bone Dr. Correa History of surgery fistula repair [id number] History of surgery on wrist left wrist ganglion cyst removal Family History Family History Sibling Family history of lung cancer Other Family history of allergic disorder Family history of malignant neoplasm Hypertension Lung disease Social History Social History Smoking packs per day: 0.75 Smoking cigarettes per day: 15.0 Years smoked: 45 Smoking pack-years: 33.75 Tobacco type: cigarettes Alcohol intake: never Substance use: current Substance use type: marijuana Gender identity (if verbalized by the patient): Female Spiritual care concerns: No Comments At time of signature, agree with nursing past medical, surgical, social and family history. There is no relevant family history pertinent to the presenting complaint Exam Narrative: CONSTITUTIONAL: Denies fever, chills, or sweats. EYES: Denies visual changes, redness, or discharge. ENT: Denies rhinorrhea, congestion, sore throat, or otalgia. CARDIOVASCULAR: Denies chest pain, palpitations, or edema. RESPIRATORY: Denies cough or dyspnea. GASTROINTESTINAL: Denies abdominal pain, nausea, vomiting, or diarrhea. GENITOURINARY: Denies dysuria or hematuria. SKIN: Denies rash or itching. MUSCULOSKELETAL: Denies back pain, joint pain, or myalgia. NEUROLOGIC: Denies headache, numbness, or weakness. P
== END 2021-03-29 14:22 | disposition home or self-care (01) ==
PROVIDERS: Emergency Provider Nurse Practitioner Family; PCP Internal Medicine
DX: J40 Bronchitis, not specified as acute or chronic (principal); F17.210 Nicotine dependence, cigarettes, uncomplicated; K21.9 Gastro-esophageal reflux disease without esophagitis; E66.9 Obesity, unspecified; Z68.39 Body mass index [BMI] 39.0-39.9, adult; F41.9 Anxiety disorder, unspecified; M18.9 Osteoarthritis of first carpometacarpal joint, unspecified; M19.041 Primary osteoarthritis, right hand; F12.90 Cannabis use, unspecified, uncomplicated; J44.9 Chronic obstructive pulmonary disease, unspecified
CPT/HCPCS: 71046; 99213; G0463

== ENCOUNTER 2021-04-01 12:26 | Emergency (ER) | payer OTHER, SELFPAY ==
[2021-04-01] VITALS (7 sets, daily range): BP systolic 132–166; BP diastolic 78–81; PULSE 78–109; RESP 18–22; O2SAT 84–99
--- NOTE | ~2021-04-01 | XR_ITS ---
EXAMINATION: XR chest 2V DATE: 04/01/2021 12:52 INDICATION: Shortness of breath TECHNIQUE: PA and lateral views of the chest are obtained. COMPARISON: 03/29/2021 FINDINGS: The lungs are free of acute opacities. There is no pleural effusion or pneumothorax. The ca rdiomediastinal silhouette is normal. There is chronic anterior wedging of multiple lower thoracic ve rtebral bodies. Surgical changes are noted in the cervical spine. A calcified nodule of the right upp er lobe is consistent with old granulomatous disease. IMPRESSION: 1. No acute cardiopulmonary abnormality. Reviewed, dictated and finalized at location A. 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
--- NOTE | 2021-04-01 12:29 | ECG_ITS ---
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
--- NOTE | 2021-04-01 12:44 | ED.SOB ---
HPI - SOB/Dyspnea General Chief Complaint: Shortness of Breath/Dyspnea Stated Complaint: SOB Time Seen by Provider: 04/01/21 12:28 History of Present Illness HPI Narrative: 60-year-old female history of COPD presents to emergency room with complaints of shortness of breath difficulty breathing that started 3 days ago. States she was seen at an urgent care, diagnosed with bronchitis sent home with Tessalon Perles, albuterol bullets for her nebulizer, and steroid Dosepak. Patient states she has not demonstrated any improvement in symptoms, and admits to increased shortness of breath. Patient is on Flovent and albuterol normally. Denies fever. Related Data Home Medications Medication Instructions Recorded Confirmed albuterol sulfate 90 mcg/actuation 1 inh INHALATION Q4H 03/17/20 09/01/20 aerosol inhaler citalopram 40 mg tablet 40 mg PO DAILY 03/17/20 09/01/20 cyclobenzaprine 10 mg tablet 10 mg PO TID 03/17/20 09/01/20 meloxicam 15 mg PO DAILY 03/17/20 09/01/20 omeprazole magnesium [Prilosec OTC] 40 mg PO DAILY 03/17/20 09/01/20 trazodone 100 mg tablet 100 mg PO DAILY 03/17/20 09/01/20 irbesartan 75 mg PO DAILY 03/24/20 09/01/20 Allergies Allergy/AdvReac Type Severity Reaction Status Date / Time No Known Allergies Allergy Verified 09/10/20 08:56 Review of Systems Review of Systems: CONSTITUTIONAL: Denies fever, chills, or sweats. EYES: Denies visual changes, redness, or discharge. ENT: Denies rhinorrhea, congestion, sore throat, or otalgia. CARDIOVASCULAR: Denies chest pain, palpitations, or edema. RESPIRATORY: Reports cough and dyspnea. GASTROINTESTINAL: Denies abdominal pain, nausea, vomiting, or diarrhea. GENITOURINARY: Denies dysuria or hematuria. SKIN: Denies rash or itching. MUSCULOSKELETAL: Denies back pain, joint pain, or myalgia. NEUROLOGIC: Denies headache, numbness, dizziness, or weakness. PSYCHIATRIC: Denies anxiety or depression. [facility] Past Medical History Medical History Anxiety Arthritis Arthritis of carpometacarpal (CMC) joint of left thumb Arthritis of hand, right Congestion of nasal sinus Constipation De Quervain's tenosynovitis, left GERD (gastroesophageal reflux disease) Kidney stones Obesity Trigger finger, left ring finger Urinary frequency Wears glasses Weight gain Wheezing Surgical History Surgical History History of cervical spinal surgery 2 vertebrae in neck replaced 2013 History of hand surgery Ring trigger finger 2015, Dr. Correa History of left knee surgery Dr. Correa, 1997 History of shoulder surgery Right shoulder 2003, collar bone Dr. Correa History of surgery fistula repair [id number] History of surgery on wrist left wrist ganglion cyst removal Family History Family History Sibling Family history of lung cancer Other Family history of allergic disorder Family history of malignant neoplasm Hypertension Lung disease Social History Social History Smoking packs per day: 0.75 Smoking cigarettes per day: 15.0 Years smoked: 45 Smoking pack-years: 33.75 Tobacco type: cigarettes Alcohol intake: never Substance use: current Substance use type: marijuana Gender identity (if verbalized by the patient): Female Spiritual care concerns: No Exam Narrative: GENERAL: Well-appearing, well-nourished, and in no acute distress. HEAD: Normocephalic, atraumatic. EYES: PERRLA and EOMI. ENT: Nares clear, no rhinorrhea or epistaxis. Mucous membranes moist. Oropharynx without tonsillar hypertrophy exudate or other lesions. Bilateral TMs pearly angulo nonbulging NECK: Supple. No adenopathy or masses. No carotid bruits or JVD CHEST: No respiratory distress. Expiratory wheezes HEART: Regular rate and rhythm. No murmur heard.
[2021-04-01] MEDS: ALBUTEROL SULFATE NEB 2.5 MG/0.5 ML INH 5 MG INHALATION (12:53)
[2021-04-01] MEDS: IPRATROPIUM BR 0.02% INH SOLN 0.5 MG/2.5 ML VIAL INHALATION (12:53)
[2021-04-01] MEDS: methylPREDNISolone SOD SUCC 125 MG VIAL IV PUSH (12:56)
[2021-04-01 13:05] LABS: Basophils Percent Auto 0.3 % (0.2-1.2); Eosinophils Absolute Auto 0.2 K/mm3 (0-0.3); Eosinophils Percent Auto 1.7 % (0-4.4); Hematocrit 49.9 % (37.0-47.0); Hemoglobin 15.7 g/dL (12.0-15.0); Immature Granulocyte Absolute 0.05 K/mm3 (0.00-0.031); Immature Granulocyte Percent A 0.4 % (0-0.5); Lymphocytes Absolute Auto 2.16 K/mm3 (0.9-3.2); Lymphocytes Percent Auto 17.3 % (18.3-44.2); Mean Corpuscular HGB Conc 31.5 g/dl (32-36); Mean Corpuscular Hemoglobin 31.3 pg (26-34); Mean Corpuscular Volume 99.4 fl (80-100); Mean Platelet Volume 10.1 fl (7.4-10.4); Monocytes Absolute Auto 1.2 K/mm3 (0.1-0.6); Monocytes Percent Auto 9.6 % (2.6-8.5); Neutrophils Absolute Auto 8.9 K/mm3 (1.3-6.7); Neutrophils Percent Auto 70.7 % (45.5-73.1); Platelet Count Result 257 k/mm3 (150-375); Red Blood Count 5.02 M/mm3 (4.2-5.4); Red Cell Distribution Width 13.6 % (11.5-14.5); White Blood Count 12.5 K/mm3 (4.5-10.0)
[2021-04-01 13:14] LABS: Alanine Aminotransferase 55 U/L (4-35); Albumin Level 4.4 g/dL (3.5-5.1); Alkaline Phosphatase 97 U/L (38-126); Anion Gap 9 mmol/L (8-16); Aspartate Amino Transferase 40 U/L (14-36); Bilirubin,Total 0.5 mg/dL (0.2-1.3); Blood Urea Nitrogen 18 mg/dL (7-17); Calcium 9.2 mg/dL (8.4-10.2); Carbon Dioxide 28 mmol/L (22-30); Chloride 101 mmol/L (98-107); Estimated CRCL calculation 88 ml/min; Estimated Glomerular Filt Rate > 60; Glucose 159 mg/dL (65-110); Potassium 3.8 mmol/L (3.4-5.0); Sodium 138 mmol/L (137-145)
[2021-04-01 13:47] LABS: SARS-CoV-2 RNA PCR Negative
--- NOTE | 2021-04-01 13:48 | PC.NURSE ---
Oxygen removed, will monitor patients status.
== END 2021-04-01 14:15 | disposition home or self-care (01) ==
PROVIDERS: Emergency Provider Nurse Practitioner Family; PCP Internal Medicine
DX: J44.1 Chronic obstructive pulmonary disease with (acute) exacerbation (principal); Z20.822 Contact with and (suspected) exposure to COVID-19; M18.9 Osteoarthritis of first carpometacarpal joint, unspecified; M65.4 Radial styloid tenosynovitis [de Quervain]; K21.9 Gastro-esophageal reflux disease without esophagitis; F41.9 Anxiety disorder, unspecified; E66.9 Obesity, unspecified; Z68.41 Body mass index [BMI] 40.0-44.9, adult; Z87.442 Personal history of urinary calculi; Z96.698 Presence of other orthopedic joint implants; F17.210 Nicotine dependence, cigarettes, uncomplicated
CPT/HCPCS: 36415; 71046; 80053; 85025; 93005; 94640; 96374; 99284; C9803; J2930; U0003; U0005

== ENCOUNTER 2021-07-24 13:42 | Outpatient (CLI) | payer MEDICARE, MEDICAID, SELFPAY ==
--- NOTE | ~2021-07-24 | XR_ITS ---
EXAMINATION: XR chest 2V 07/24/2021 14:06 INDICATION: Recent bronchitis. COPD. PROCEDURE: 2 view chest COMPARISON: 04/01/2021 FINDINGS: There are reticulonodular densities in the right lung base, suspicious for pneumonia. Calci fied granuloma right upper lobe. No significant effusion or pneumothorax. Moderate thoracic spondylos is with accentuated kyphosis. The cardiomediastinal silhouette is within normal limits. There are no pleural effusions. There is no pneumothorax suspected. IMPRESSION: 1: Reticulonodular densities right lower lung, suspicious for pneumonia. Reviewed, dictated and finalized at location A.
== END 2021-07-24 13:43 | disposition home or self-care (01) ==
LOC: ANHIMG 13:56
PROVIDERS: PCP Internal Medicine; Visit Provider Internal Medicine
DX: J40 Bronchitis, not specified as acute or chronic (principal); J44.9 Chronic obstructive pulmonary disease, unspecified; Z72.0 Tobacco use; R91.8 Other nonspecific abnormal finding of lung field
CPT/HCPCS: 71046

== ENCOUNTER 2021-09-27 11:07 | Emergency (ER) | payer MEDICARE, MEDICAID, SELFPAY ==
--- NOTE | ~2021-09-27 | XR_ITS ---
EXAMINATION: XR hand LT min 3V DATE: 09/27/2021 13:46 INDICATION: Posterior left hand swelling. TECHNIQUE: 3 views of left hand were obtained. COMPARISON: Left hand radiographs 09/01/2020 FINDINGS: Bone alignment is normal. Trapezium is absent. No acute fracture. There is heterotopic ossi fication distal to ulna and adjacent to radial styloid. There is mild osteoarthritis of first-fourth metacarpophalangeal joints and some of the interphalangeal joints. IMPRESSION: 1. Polyarticular osteoarthritis. Reviewed, dictated and finalized at location A.
--- NOTE | ~2021-09-27 | XR_ITS ---
EXAMINATION: XR chest 2V DATE: 09/27/2021 11:46 INDICATION: Shortness of breath. TECHNIQUE: Frontal and lateral views of the chest were obtained. COMPARISON: Chest 2 views 07/24/2021, chest CT 06/26/2020 FINDINGS: A calcified right lung nodule is consistent with old granulomatous disease. There are airsp oliverio opacities in right middle lobe. No pleural effusion or pneumothorax. The heart size is normal. Th ere are changes of anterior fusion procedure in cervical spine. There is mild chronic anterior wedgin g of multiple thoracic vertebral bodies. IMPRESSION: 1. Airspace opacities in right middle lobe, consistent with atelectasis versus pneumonia. Reviewed, dictated and finalized at location A.
[2021-09-27 11:10] VITALS: BP 182/94; PULSE 108; RESP 14; TEMP 36.6; O2SAT 94
--- NOTE | 2021-09-27 11:13 | ECG_ITS ---
Measurements Intervals [place] Rate: 99 P: 54 [place]: 137 QRS: 33 QRSD: 86 T: 50 QT: 349 QTc: 449 Interpretive Statements SINUS RHYTHM COMPARED TO ECG 04/01/2021 12:31:45 THE PATIENT IS NO LONGER TACHYCARDIC Electronically Signed On 09-27-2021 15:13:54 CDT by Yolanda Salvador M.D.
[2021-09-27 11:44] LABS: Basophils Percent Auto 0.3 % (0.2-1.2); Eosinophils Absolute Auto 0.2 K/mm3 (0-0.3); Eosinophils Percent Auto 1.1 % (0-4.4); Hematocrit 46.4 % (37.0-47.0); Hemoglobin 14.4 g/dL (12.0-15.0); Immature Granulocyte Absolute 0.05 K/mm3 (0.00-0.031); Immature Granulocyte Percent A 0.4 % (0-0.5); Lymphocytes Absolute Auto 1.89 K/mm3 (0.9-3.2); Lymphocytes Percent Auto 14.3 % (18.3-44.2); Mean Corpuscular Hemoglobin 30.4 pg (26-34); Mean Corpuscular Volume 97.9 fl (80-100); Mean Platelet Volume 9.4 fl (7.4-10.4); Monocytes Absolute Auto 0.8 K/mm3 (0.1-0.6); Monocytes Percent Auto 5.7 % (2.6-8.5); Neutrophils Absolute Auto 10.3 K/mm3 (1.3-6.7); Neutrophils Percent Auto 78.2 % (45.5-73.1); Platelet Count Result 323 k/mm3 (150-375); Red Blood Count 4.74 M/mm3 (4.2-5.4); Red Cell Distribution Width 13.1 % (11.5-14.5); White Blood Count 13.2 K/mm3 (4.5-10.0)
[2021-09-27 11:58] LABS: Alanine Aminotransferase 17 U/L (6-35); Albumin Level 4.1 g/dL (3.5-5.1); Alkaline Phosphatase 87 U/L (38-126); Anion Gap 10 mmol/L (8-16); Aspartate Amino Transferase 19 U/L (14-36); Bilirubin,Total 0.5 mg/dL (0.2-1.3); Blood Urea Nitrogen 19 mg/dL (7-17); Calcium 8.8 mg/dL (8.4-10.2); Carbon Dioxide 31 mmol/L (22-30); Chloride 100 mmol/L (98-107); Estimated Glomerular Filt Rate > 60; Glucose 120 mg/dL (65-110); Potassium 3.7 mmol/L (3.4-5.0); Sodium 141 mmol/L (137-145)
--- NOTE | 2021-09-27 13:32 | ED.GENADULT ---
HPI - General Adult General Chief complaint: Weakness Stated complaint: low oxygen, multiple complaints Time Seen by Provider: 09/27/21 13:03 History of Present Illness HPI narrative: 61-year-old female presenting to the emergency department for evaluation of multiple complaints. Patient states that she was camping last week and started noticing rashes in her lower legs and upper arms few days ago. Patient felt that the rash is continuing to worsen. Patient is unsure if she had any bug bites but states she was swimming at the time. Patient denies any chest pain. Patient does have history of COPD is a smoker. Patient states she does have some shortness of breath but is not worsened compared to baseline. 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 Related Data Home Medications Medication Instructions Recorded Confirmed albuterol sulfate 90 mcg/actuation 1 inh inhalation Q4H 03/17/20 09/01/20 aerosol inhaler citalopram 40 mg tablet 40 mg PO DAILY 03/17/20 09/01/20 cyclobenzaprine 10 mg tablet 10 mg PO TID 03/17/20 09/01/20 meloxicam 15 mg PO DAILY 03/17/20 09/01/20 omeprazole magnesium [Prilosec OTC] 40 mg PO DAILY 03/17/20 09/01/20 trazodone 100 mg tablet 100 mg PO DAILY 03/17/20 09/01/20 irbesartan 75 mg tablet 75 mg PO DAILY 03/24/20 09/01/20 Allergies Allergy/AdvReac Type Severity Reaction Status Date / Time No Known Allergies Allergy Verified 09/10/20 08:56 Review of Systems Review of Systems: CONSTITUTIONAL: Denies fever, chills, or sweats. EYES: Denies visual changes, redness, or discharge. ENT: Denies rhinorrhea, congestion, sore throat, or otalgia. CARDIOVASCULAR: Denies chest pain, palpitations, or edema. RESPIRATORY: Denies cough or dyspnea. GASTROINTESTINAL: Denies abdominal pain, nausea, vomiting, or diarrhea. GENITOURINARY: Denies dysuria or hematuria. SKIN: See HPI MUSCULOSKELETAL: Denies back pain, joint pain, or myalgia. NEUROLOGIC: Denies headache, numbness, or weakness. PSYCHIATRIC: Denies anxiety or depression. [facility] Past Medical History Medical History Anxiety Arthritis Arthritis of carpometacarpal (CMC) joint of left thumb Arthritis of hand, right Congestion of nasal sinus Constipation De Quervain's tenosynovitis, left GERD (gastroesophageal reflux disease) Kidney stones Obesity Trigger finger, left ring finger Urinary frequency Wears glasses Weight gain Wheezing Surgical History Surgical History History of cervical spinal surgery 2 vertebrae in neck replaced 2013 History of hand surgery Ring trigger finger 2015, Dr. Correa History of left knee surgery Dr. Correa, 1997 History of shoulder surgery Right shoulder 2003, collar bone Dr. Correa History of surgery fistula repair [id number] History of surgery on wrist left wrist ganglion cyst removal Family History Family History Sibling Family history of lung cancer Other Family history of allergic disorder Family history of malignant neoplasm Hypertension Lung disease Social History Social History Smoking packs per day: 0.75 Smoking cigarettes per day: 15.0 Years smoked: 45 Smoking pack-years: 33.75 Tobacco type: cigarettes Alcohol intake: never Substance use: current Substance use type: marijuana Gender identity (if verbalized by the patient): Female Spiritual care concerns: No Exam Narrative: APPEARANCE: Well appearing, no pain, no distress, well-nourished. HEAD: normocephalic, atraumatic. EYES: PERRLA/EOMI, conjunctivae clear. NOSE: Normal no drainage EARS:TMS clear with good light reflex. THROAT: Pharynx clear, no exudate. NECK: Supple. No adenopathy, no masses. RESPIRATORY: Airway patent, respirations nonlabored. Clear to auscultation bila
[2021-09-27 13:33] LABS: INR 1.1; Prothrombin Time 13.3 Seconds (11.1-14.7)
[2021-09-27 13:34] LABS: Partial Thromboplastin Time 29.7 SECONDS (22.3-36.8)
[2021-09-27 14:47] VITALS: BP 146/84; PULSE 86; RESP 16; O2SAT 97
== END 2021-09-27 14:47 | disposition home or self-care (01) ==
PROVIDERS: Emergency Medicine; Emergency Provider Emergency Medicine; PCP Internal Medicine
DX: R21 Rash and other nonspecific skin eruption (principal); M19.90 Unspecified osteoarthritis, unspecified site; F17.210 Nicotine dependence, cigarettes, uncomplicated; F41.9 Anxiety disorder, unspecified; K21.9 Gastro-esophageal reflux disease without esophagitis; Z87.442 Personal history of urinary calculi; J44.9 Chronic obstructive pulmonary disease, unspecified; R06.02 Shortness of breath
CPT/HCPCS: 36415; 71046; 73130; 80053; 85025; 85610; 85730; 93005; 99283

== ENCOUNTER 2021-10-22 11:00 | Outpatient (CLI) | payer MEDICARE, MEDICAID, SELFPAY ==
--- NOTE | 2021-10-22 | ECHO_ITS ---
Patient Info Name: Tracy Larson Age: 61 years : 1960 Gender: Female Ht: 63 in Wt: 235 lbs BSA: 2.23 m2 HR: 117 bpm BP: 153 / 96 mmHg Heart Rhythm: Sinus Rhythm, Tachycardia Technical Quality: Fair Exam Date: 10/22/2021 1:25 PM Exam Location: [facility] Patient Status: Outpatient Admit Date: 10/22/2021 Staff Ordering Physician: LuisAna APRN Microbiology Teacher: Yun Logan RDCS Attending Provider: Ana Patino APRN Exam Type: CA echo doppler color flow Study Info Indications R06.09 - Other forms of dyspnea Complete two-dimensional, color flow and Doppler transthoracic echocardiogram is performed. Summary 1. Complete two-dimensional, color flow and Doppler transthoracic echocardiogram is performed. 2. Left ventricular systolic function is normal, estimated at 50-55%. 3. There is mildly increased left ventricular wall thickness. 4. No significant valvular disease. Left Ventricle Left ventricular chamber dimension is normal. Left ventricular systolic function is normal, estimated at 50-55%. There is mildly increased left ventricular wall thickness. The left ventricular diastolic function is grade I diastolic dysfunction. Right Ventricle Right ventricular chamber dimension is normal. Right ventricular systolic function is normal. Left Atria Left atrial chamber dimension is normal. Right Atria Right atrial chamber dimension is normal. Atrial Septum Intact interatrial septum visualized by color flow imaging. Aortic Valve The aortic valve is not well visualized. There is no aortic valve stenosis. There is no aortic valve regurgitation. Pulmonic Valve The pulmonic valve is not well visualized. Mitral Valve The mitral valve has normal leaflets. There is no mitral valve stenosis. There is trace mitral valve regurgitation. Tricuspid Valve The tricuspid valve leaflets are not well visualized. There is no significant tricuspid valve stenosis. There is trace tricuspid valve regurgitation. Pericardium/Pleural The pericardium appears epicardial fat pad. There is trivial pericardial effusion. Inferior Vena Cava Normal inferior vena cava with >50% collapse upon inspiration consistent with Empty right atrial pressure, Empty. Aorta The aortic root size at the sinus of Valsalva is normal. The prox ascending aorta size is normal. Left Ventricular Outflow Tract Name Value Normal LVOT 2D LVOT Diameter 2.0 cm LVOT Doppler LVOT Peak Gradient 5 mmHg LVOT Mean Gradient 3 mmHg LVOT VTI 19 cm LVOT VTI/AV VTI Ratio 1.0 LVOT Stroke Volume 61 ml LVOT CO 6.1 l/min LVOT CI 2.7 l/min/m2 Pulmonic Valve Name Value Normal RVOT Doppler
[2021-10-22 14:30] VITALS: PULSE 98; O2SAT 93
[2021-10-22 14:33] VITALS: PULSE 119; O2SAT 85
[2021-10-22 14:35] VITALS: O2SAT 87
[2021-10-22 14:36] VITALS: PULSE 102; O2SAT 92
[2021-10-22 14:45] VITALS: PULSE 89; O2SAT 95
--- NOTE | 2021-10-22 15:23 | HOMEO2EVAL ---
Evaluation was performed at [facility] Home Oxygen Evaluation RC: Home Oxygen (O2) Evaluation Start: 10/22/21 15:19 Freq: Status: Active Protocol: RPE Activity Type Activity Date Activity User E-sign Co-sign Detail Recorded Client Recorded Date Recorded By Document 10/22/21 14:30 MARGARITA [email or web address] 10/22/21 15:22 MARGARITA Document 10/22/21 14:33 MARGARITA [email or web address] 10/22/21 15:22 MARGARITA Document 10/22/21 14:35 MARGARITA [email or web address] 10/22/21 15:22 MARGARITA Document 10/22/21 14:36 MARGARITA [email or web address] 10/22/21 15:22 MARGARITA Document 10/22/21 14:45 MARGARITA [email or web address] 10/22/21 15:22 MARGARITA 10/22/21 10/22/21 10/22/21 14:30 14:33 14:35 Home O2 Evaluation Test Phase Resting Exercise Exercise Oxygen Delivery Room Air Room Air Nasal Cannula Oxygen Flow Rate (L/min) 1 Pulse Oximetry (90-100 %) 93 85 L 87 L Pulse Rate (60-100 beats/min) 98 119 H Activity Tolerance Fair Home Oxygen Evaluation Comments Treatment Charges O2 Evaluation - Outpatient 10/22/21 10/22/21 14:36 14:45 Home O2 Evaluation Test Phase Exercise Resting Oxygen Delivery Nasal Cannula Room Air Oxygen Flow Rate (L/min) 2 Pulse Oximetry (90-100 %) 92 95 Pulse Rate (60-100 beats/min) 102 H 89 Activity Tolerance Home Oxygen Evaluation Comments PATIENT REQUIRES 2L WITH ACTIVITY. ROOM AIR AT REST. PATIENT WALKED 500 FEET IN 6 MINUTES Treatment Charges
--- NOTE | 2021-10-23 11:22 | WPDPFTINT ---
PFT Procedure Performed PFT Procedure Performed Spirometry with Pre/Post Bronchodilator PFT Interpretation Spirometry showed diminished expiratory flow rates and a diminished FEV1 to FVC ratio 61%, indicative of obstructive airway disease. Following administration of a bronchodilator there was significant increase in the FVC. The flow volume loop is consistent with obstructive airway disease. Impression: Moderate obstructive airway disease with significant response to bronchodilators on this testing.
== END 2021-10-22 11:01 | disposition home or self-care (01) ==
LOC: ANHCARD 12:55
PROVIDERS: PCP Internal Medicine; Visit Provider Nurse Practitioner Gerontology
DX: J44.9 Chronic obstructive pulmonary disease, unspecified (principal); R06.09 Other forms of dyspnea
CPT/HCPCS: 93306; 94060; 94618

== ENCOUNTER → 2021-12-29 14:43 | Outpatient (CLI) | payer MEDICARE, MEDICAID, SELFPAY ==
--- NOTE | ~2021-12-29 | CT_ITS ---
EXAMINATION: CT diagnostic chest wo con DATE: 12/29/2021 15:05 INDICATION: Dyspnea with exertion. TECHNIQUE: Computed tomography (CT) of the chest was performed without intravenous contrast. The dose -length product was 697.65 mGy-cm. Automated exposure control and iterative reconstruction technique were employed. COMPARISON: CT dated 07/04/2020 FINDINGS: There is masslike consolidation of the right middle lobe. Heart size normal. No endobronchi al lesions. No pneumothorax. There are calcified granulomas. There is volume loss with mediastinal sh ift to the right. No pneumothorax. Moderate thoracic spondylosis with accentuated kyphosis. Multiple chronic appearing wedge deformities of the thoracic spine. There are nonobstructing left renal stones . There are calcified granulomas of the spleen. IMPRESSION: 1. Masslike consolidation right middle lobe, most likely chronic atelectasis/scarring, although neopl asm is not excluded. Consider correlation with pet/CT scan. Reviewed, dictated and finalized at location B. [facility] IMPRESSION: 1. Masslike consolidation right middle lobe, most likely chronic atelectasis/sc arring, although neoplasm is not excluded. Consider correlation with pet/CT clarisse denney
== END ==
PROVIDERS: PCP Internal Medicine; Visit Provider Nurse Practitioner Gerontology
DX: J18.1 Lobar pneumonia, unspecified organism (principal)
CPT/HCPCS: 71250

== ENCOUNTER 2022-02-18 10:36 | Outpatient (CLI) | payer MEDICARE, MEDICAID, SELFPAY ==
--- NOTE | ~2022-02-18 | PE_ITS ---
EXAMINATION: PET skull to mid thigh DATE: 02/18/2022 13:49 INDICATION: Abnormal finding on prior diagnostic imaging of the lungs. TECHNIQUE: Blood glucose level was 103 mg/dL. 12.009 mCi of 18-fluorodeoxyglucose (18-FDG) was admini stered i.v. Low dose computed tomography (CT) images were acquired from the base of the brain to the proximal thighs for attenuation correction and anatomic localization. Positron emission tomography (P ET) images were acquired in the same distribution beginning 48 minutes after injection. Images includ ing fused PET/CT images were reconstructed in axial, coronal, and sagittal planes. Automated exposure control technique was employed. The dose-length product was 844.78mGy-cm. COMPARISON: Chest CT dated 12/29/[address] abdomen and pelvis dated 03/31/2020 FINDINGS: Head/neck: There is symmetric increased activity in the oral and nasal cavities, laryngeal muscles and ocular mu scles without CT correlate, likely physiologic. Increased uptake at the palatine tonsils without radi ologic correlate, right greater than left. No pathologically enlarged cervical lymphadenopathy or meena picious foci of increased FDG uptake in the visualized head or neck. Chest: The previously noted like region of consolidation in the right middle lobe with masslike appearance on axial imaging now demonstrates a thin linear configuration without evident FDG uptake consistent w ith a region of improving atelectasis a few calcified nodules in the right upper lobe along with calc ified right hilar and mediastinal lymph nodes consistent with old granulomatous disease. No other meena picious pulmonary nodules, pneumonia or pleural effusion. Heart size is normal. Atherosclerotic coron kelsea artery calcific location. No pericardial effusion. Thoracic aorta is normal in caliber. No pathol ogically enlarged or FDG avid thoracic lymphadenopathy. Abdomen/pelvis/proximal thighs: Physiologic renal accumulation and excretion of FDG activity in the kidneys, bladder and along portio ns of ureters. Bilateral nonobstructing nephrolithiasis with 11 mm stone at a lower pole calyx of the left kidney. Normal degree and heterogenous pattern of increased uptake throughout the liver without radiologic correlate or dominant FDG avid lesion. Small hepatic and splenic calcifications consisten t with old granulomatous disease. Gallstones in the dependent aspect of the otherwise normal-appearin g gallbladder. Pancreas and bilateral adrenal glands are normal. Mild to moderate uptake scattered th roughout the bowels without radiologic correlate, also likely physiologic. No other abnormal foci of increased FDG uptake or pathologically enlarged lymphadenopathy in the abdomen, pelvis or proximal th ighs. Musculoskeletal: Likely degenerative mild uptake associated with osteoarthritis of the right acromioclavicular joint a nd the right C2-C3 facet joint. Moderate thoracic spondylosis with chronic anterior wedging of a few mid to lower thoracic vertebral bodies. Moderate bilateral hip osteoarthritis. No suspicious lytic, b lastic or FDG avid bone lesions. IMPRESSION: 1. Masslike consolidation in the right middle lobe now consistent more thin linear configuration and is without associated FDG activity consistent with improving atelectasis. 2. No other lesions suspicious for primary malignancy or metastatic disease. 3. Cholelithiasis. 4. Nonobstructing bilateral nephrolithiasis. Reviewed, dictated and finalized at location A. 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 Masslike consolidation in the right middle lobe now consistent more thin simon ear configuration and is without associated FDG activity consistent with improv ing atelectasis. 2. No other lesions suspicious for primary malignancy or metastatic disease.
--- NOTE | ~2022-02-18 | MR_ITS ---
EXAMINATION: MR lumbar spine wo con DATE: 02/18/2022 11:27 INDICATION: Lumbar radiculopathy. TECHNIQUE: Magnetic resonance imaging (MRI) of the lumbar spine was performed without intravenous con trast. Sequences included sagittal T2-weighted FSE, sagittal T2-weighted FS FSE, sagittal T1-weighted FSE, and axial T2-weighted FSE. COMPARISON: None FINDINGS: There is 3 mm retrolisthesis of T12 on L1 and L1 on L2. There is mild chronic anterior wedg ing of T11 and T12 vertebral bodies. There are Schmorl's nodes from T10-T11 through L3-L4. There is m oderately decreased disc height at T12-L1 and mildly decreased disc height at L1-L2, L3-L4, and L4-L5 . The distal spinal cord signal intensity is normal. The conus medullaris is at L1. The following dis c levels are specifically discussed: T12-L1: The disc is bulging with superimposed right subarticular zone extrusion. There is severe righ t and mild left facet joint osteoarthritis. There is moderate right and mild left neural foraminal st enosis. There is mild central canal stenosis. L1-L2: The disc is bulging and has an annular fissure. There is severe right and moderate left facet joint osteoarthritis. There is moderate right and mild left neural foraminal stenosis. There is mild central canal stenosis. L2-L3: The disc is bulging. There is severe bilateral facet joint osteoarthritis. There is mild bilat eral neural foraminal stenosis. There is mild central canal stenosis. L3-L4: The disc is bulging and has an annular fissure. There is severe bilateral facet joint osteoart hritis. There is moderate right and mild left neural foraminal stenosis. There is moderate central ca nal stenosis. L4-L5: The disc is bulging and has an annular fissure. There is severe bilateral facet joint osteoart hritis. There is mild bilateral neural foraminal stenosis. There is mild central canal stenosis. L5-S1: The disc is bulging as an annular fissure. There is severe bilateral facet joint osteoarthriti s. There is mild bilateral neural foraminal stenosis. There is mild central canal stenosis. IMPRESSION: 1. Moderate lumbar spondylosis. Reviewed, dictated and finalized at location A. T ADJUSTER
[2022-02-18 12:18] LABS: Glucose Point of Care 103 mg/dl (65-105)
== END 2022-02-18 10:37 | disposition home or self-care (01) ==
PROVIDERS: PCP Internal Medicine; Referring Provider Nurse Practitioner Family; Visit Provider Nurse Practitioner Gerontology
DX: M47.816 Spondylosis without myelopathy or radiculopathy, lumbar region (principal); R91.8 Other nonspecific abnormal finding of lung field; K80.20 Calculus of gallbladder without cholecystitis without obstruction; N20.0 Calculus of kidney; Z78.0 Asymptomatic menopausal state
CPT/HCPCS: 72148; 78815; A9552

== ENCOUNTER 2022-04-07 09:41 | Inpatient (IN) | payer MEDICARE, MEDICAID, SELFPAY ==
[2022-04-07] VITALS (25 sets, daily range): BP systolic 100–135; BP diastolic 53–76; PULSE 61–115; RESP 18–111; TEMP 35.6–36.3; O2SAT 84–96; BMI 40.2
--- NOTE | ~2022-04-07 | XR_ITS ---
XR chest 2V 04/07/2022 10:30 Indication: Shortness of breath Procedure: 2 view chest Comparison: Comparison to multiple prior studies sequentially, with oldest reviewed study dated 03/29. Findings: Bibasilar airspace disease, compatible with pneumonia. Heart size normal. Calcified granulo ma right upper lobe. No pneumothorax. No acute osseous abnormality. There are multiple wedge-shaped d eformities of the thoracic spine which appear chronic. Impression: 1: Bibasilar airspace disease, compatible with pneumonia. Reviewed, dictated and finalized at location B. DERETTE ATTENDANT Impression: 1: Bibasilar airspace disease, compatible with pneumonia.
--- NOTE | ~2022-04-07 | XR_ITS ---
EXAMINATION: XR chest 2V DATE: 04/09/2022 10:20 INDICATION: Pneumonia. Follow-up. TECHNIQUE: Frontal and lateral views of the chest were obtained. COMPARISON: Chest 2 views 04/07/2022, PET/CT 02/18/2022 FINDINGS: Calcified right lung nodules and calcified right hilar lymph nodes are consistent with old granulomatous disease. There are airspace opacities in right middle lobe. There is mild atelectasis i n lingula. There is a trace left pleural effusion. No pneumothorax. The heart size is normal. There a re changes of anterior fusion procedures in cervical spine. IMPRESSION: 1. Stable airspace opacities in right middle lobe, consistent with atelectasis versus pneumonia. Reviewed, dictated and finalized at location A. STERED NURSE
--- NOTE | 2022-04-07 10:01 | ECG_ITS ---
Measurements Intervals Hester Rate: 106 P: 37 WI: 144 QRS: 52 QRSD: 85 T: 61 QT: 321 QTc: 428 Interpretive Statements SINUS TACHYCARDIA ATRIAL PREMATURE COMPLEXES BASELINE ARTIFACT- I, III, AVR, AVL, AVF ABNORMAL ECG COMPARED TO ECG 09/27/2021 11:16:44 SINUS TACHYCARDIA NOW PRESENT Electronically Signed On 04-07-2022 10:05:00 LODGING FACILITIES ATTENDANT by Moe Banks D.O.
[2022-04-07 10:28] LABS: Basophils Absolute Auto 0.1 K/mm3 (0.0-0.1); Basophils Percent Auto 0.3 % (0.2-1.2); Eosinophils Absolute Auto 0.1 K/mm3 (0-0.3); Eosinophils Percent Auto 0.3 % (0-4.4); Hemoglobin 12.9 g/dL (12.0-15.0); Immature Granulocyte Absolute 0.11 K/mm3 (0.00-0.031); Immature Granulocyte Percent A 0.6 % (0-0.5); Lymphocytes Absolute Auto 2.66 K/mm3 (0.9-3.2); Lymphocytes Percent Auto 14.1 % (18.3-44.2); Mean Corpuscular HGB Conc 30.7 g/dl (32-36); Mean Corpuscular Hemoglobin 30.2 pg (26-34); Mean Corpuscular Volume 98.4 fl (80-100); Mean Platelet Volume 10.3 fl (7.4-10.4); Monocytes Absolute Auto 1.7 K/mm3 (0.1-0.6); Monocytes Percent Auto 9.2 % (2.6-8.5); Neutrophils Absolute Auto 14.3 K/mm3 (1.3-6.7); Neutrophils Percent Auto 75.5 % (45.5-73.1); Platelet Count Result 260 k/mm3 (150-375); Red Blood Count 4.27 M/mm3 (4.2-5.4); Red Cell Distribution Width 13.8 % (11.5-14.5); White Blood Count 18.9 K/mm3 (4.5-10.0)
[2022-04-07] MEDS: ALBUTEROL SULFATE NEB 2.5 MG/3 ML INH 5 MG INHALATION (10:32)
[2022-04-07 10:44] LABS: Alanine Aminotransferase 38 U/L (6-35); Albumin Level 3.9 g/dL (3.5-5.1); Alkaline Phosphatase 78 U/L (38-126); Anion Gap 6 mmol/L (8-16); Aspartate Amino Transferase 36 U/L (14-36); Atypical Lymphocytes Present; Bilirubin,Total 1.1 mg/dL (0.2-1.3); Blood Urea Nitrogen 8 mg/dL (7-17); Calcium 8.4 mg/dL (8.4-10.2); Carbon Dioxide 30 mmol/L (22-30); Chloride 97 mmol/L (98-107); Estimated CRCL calculation 120 ml/min; Estimated Glomerular Filt Rate > 60; Glucose 134 mg/dL (65-110); Platelet Estimate Adequate (Adequate); Potassium 3.9 mmol/L (3.4-5.0); Schistocytes None Seen (NORMAL); Sodium 133 mmol/L (137-145)
--- NOTE | 2022-04-07 11:07 | ED.GENADULT ---
HPI - General Adult General Chief complaint: Shortness of Breath/Dyspnea Stated complaint: SOB X4D Time Seen by Provider: 04/07/22 10:15 History of Present Illness HPI narrative: 61-year-old female presenting to the emergency department for evaluation of worsening shortness of breath that started over the last few days. Patient does have history of COPD and is on oxygen during the day. Patient states when at home during the day typically on room air her pulse ox runs in the mid 90s. Upon arrival to the emergency department patient was in the 80s. Currently after arrival to the emergency department patient's oxygen was increased to 4 L and patient was saturating in the mid 90s. Related Data Home Medications Medication Instructions Recorded Confirmed albuterol sulfate 90 mcg/actuation 1 inh inhalation Q4H PRN Shortness 03/17/20 04/07/22 aerosol inhaler Of Breath citalopram 40 mg tablet 40 mg PO DAILY 03/17/20 04/07/22 cyclobenzaprine 10 mg tablet 10 mg PO TID 03/17/20 04/07/22 meloxicam 15 mg PO DAILY 03/17/20 04/07/22 omeprazole magnesium [Prilosec OTC] 40 mg PO DAILY 03/17/20 04/07/22 trazodone 100 mg tablet 100 mg PO HS 03/17/20 04/07/22 irbesartan 75 mg tablet 75 mg PO DAILY 03/24/20 04/07/22 Allergies Allergy/AdvReac Type Severity Reaction Status Date / Time No Known Allergies Allergy Verified 04/07/22 10:00 Review of Systems Review of Systems: CONSTITUTIONAL: Denies fever, chills, or sweats. EYES: Denies visual changes, redness, or discharge. ENT: Denies rhinorrhea, congestion, sore throat, or otalgia. CARDIOVASCULAR: Denies chest pain, palpitations, or edema. RESPIRATORY: Shortness of breath, see HPI GASTROINTESTINAL: Denies abdominal pain, nausea, vomiting, or diarrhea. GENITOURINARY: Denies dysuria or hematuria. SKIN: Denies rash or itching. MUSCULOSKELETAL: Lower extremity edema, see HPI NEUROLOGIC: Denies headache, numbness, or weakness. [facility] Past Medical History Medical History (Updated 04/07/22 @ 18:48 by Clementina Lin NP) Anxiety Arthritis Arthritis of carpometacarpal (CMC) joint of left thumb Arthritis of hand, right Congestion of nasal sinus Constipation De Quervain's tenosynovitis, left Ganglion cyst Extracted from wrist GERD (gastroesophageal reflux disease) Hypertension Kidney stones Obesity Trigger finger, left ring finger Urinary frequency Wears glasses Weight gain Wheezing Surgical History Surgical History (Updated 04/07/22 @ 18:25 by Clementina Lin NP) History of bilateral tubal ligation History of carpal tunnel release History of cervical spinal surgery 2 vertebrae in neck replaced 2013 History of hand surgery Ring trigger finger 2015, Dr. Correa History of hysterectomy with bilateral oophorectomy History of left knee surgery Dr. Correa, 1997 History of shoulder surgery Right shoulder 2003, collar bone Dr. Correa History of surgery fistula repair [id number] History of surgery on wrist left wrist ganglion cyst removal Family History Family History Sibling Family history of lung cancer Other Family history of allergic disorder Family history of malignant neoplasm Hypertension Lung disease Social History Social History (Updated 04/07/22 @ 18:26 by Clementina Lin NP) Social History: The patient states that she smokes every day typically but has not smoked in the last week due to her congestion. She is single and has 2 children . She is disabled. Code status full code Years smoked: 45 Smoking status: Current some day smoker Tobacco type: cigarettes Alcohol intake: never Substance use: current Substance use type: marijuana Lack of Transportation: No Lack of Food: Never True Current Housing: I Have Housing Concerned About Future Housing: No Difficulty Paying Gas/Electric Bills: No Difficulty Paying for Meds: No Currently Unemployed: No Education
[2022-04-07 11:21] LABS: Influenza A QL RT-PCR Negative (Negative); Influenza B QL RT-PCR Negative (Negative); RSV RNA, RT-PCR Negative (Negative); SARS-CoV-2 RNA PCR Negative
[2022-04-07] MEDS: methylPREDNISolone SOD SUCC 125 MG VIAL IV PUSH (11:41)
--- NOTE | 2022-04-07 12:27 | PM.IMHP ---
H&P: HPI History of Present Illness Date/Time: 04/07/22 12:27 Chief Complaint: Fever cough and chills with shortness of breath Narrative: This is a 61-year-old female patient who has a history of COPD and continues to smoke cigarettes. She came to the emergency room with complaints of worsening shortness of breath. The patient typically wears 2 L per nasal cannula just at night however she has been using the oxygen all day 30/08 continuously over the last 4 days. The patient had increased her oxygen up to 3 L per nasal cannula over the last few days. In the emergency room she was increased to 4 L per nasal cannula. She has had a productive cough of thick sputum with fever and chills. She also has body aches. She also complains of weakness. She has a nebulizer machine at home and she has been using her nebulizers without any relief. Patient's pulse oximeter was reading 80% in the emergency room. This increased her O2 saturation to 90%. Her white blood count 18.9. The patient stated she has not recently been on any steroids. Her sodium is 133. A/B RSV and COVID. The patient was given albuterol, azithromycin, Rocephin and Solu-Medrol in the emergency room the patient stated that she had had from coughing so much and she was given a Tylenol. The patient is being admitted for observation status on the date of service of 04/07/2022. Review of Systems Review of Systems: See HPI All systems reviewed & are unremarkable except as noted in HPI and below Constitutional: Constitutional: Reports as per HPI and Reports no additional constitutional complaints Eyes: Eyes: Reports as per HPI and Reports no additional eye complaints ENT: Reports system reviewed and no additional complaints, except as documented and Reports Normal hearing present Cardiovascular: Cardiovascular: Reports no additional cardiovascular complaints Respiratory: Respiratory: Reports no additional respiratory complaints and Reports no additional respiratory complaints Gastrointestinal: Gastrointestinal: Reports as per HPI and Reports no additional gastrointestinal complaints Musculoskeletal: Musculoskeletal: Reports no additional musculoskeletal complaints Integumentary/Breasts: Skin/Breast: Reports system reviewed and no additional complaints, except as docu and Reports as per HPI Neurologic: Reports system reviewed and no additional complaints, except as documented, Reports as per HPI and Reports Normal hearing present Psychiatric: Psychiatric: Reports no additional psychiatric complaints and Reports as per HPI Endocrine: Endocrine: Reports no additional endocrine complaints Hematologic/Lymphatic: Hematologic/Lymphatic: Reports no additional hematologic/lymphatic complaints Allergic/Immunologic: Allergic/Immunologic: Reports no additional allergic/immunologic complaints [facility] Past Medical History Medical History (Updated 04/07/22 @ 18:48 by Clementina Lin NP) Anxiety Arthritis Arthritis of carpometacarpal (CMC) joint of left thumb Arthritis of hand, right Congestion of nasal sinus Constipation De Quervain's tenosynovitis, left Ganglion cyst Extracted from wrist GERD (gastroesophageal reflux disease) Hypertension Kidney stones Obesity Trigger finger, left ring finger Urinary frequency Wears glasses Weight gain Wheezing Surgical History Surgical History (Updated 04/07/22 @ 18:25 by Clementina Lin NP) History of bilateral tubal ligation History of carpal tunnel release History of cervical spinal surgery 2 vertebrae in neck replaced 2013 History of hand surgery Ring trigger finger 2015, Dr. Correa History of hysterectomy with bilateral oophorectomy History of left knee surgery Dr. Correa, 1997 History of shoulder surgery Right shoulder 2003, collar bone Dr. Correa History of surgery fistula repair [id number] History of surgery on wrist left wrist ganglion cyst removal Family History Family History (Reviewed 04/07/22 @ 1
[2022-04-07] MEDS: ALBUTEROL SULFATE NEB 2.5 MG/3 ML INH INHALATION ×2 (13:02→19:50)
--- NOTE | 2022-04-07 13:45 | ADMGEN ---
This patient, Tracy Larson, was admitted to 3 [facility] Surg Room 315-01. Patient/family oriented to hospital policies and general routines including ID bracelet, bed and alarms, visiting hours, pain management, procedures, bathroom and other care routines, personal items, smoking policy, room service/diet, and visiting hours. Information on how to activate the Rapid Response Team has been discussed. Patient/Family are encouraged to report perceived risks to care and to ask questions if they do not understand what they are told or what they should do.
[2022-04-07] MEDS: ACETAMINOPHEN 325 MG TABLET 650 MG PO (14:42)
[2022-04-07] MEDS: methylPREDNISolone SOD SUCC 125 MG VIAL 60 MG IV PUSH ×2 (17:21→23:59)
[2022-04-07] MEDS: IPRATROPIUM BR 0.02% INH SOLN 0.5 MG/2.5 ML VIAL INHALATION (19:49)
[2022-04-07] MEDS: traZODone HCL 50 MG TABLET 100 MG PO (20:21)
[2022-04-07] MEDS: CYCLOBENZAPRINE HCL 10 MG TABLET PO (20:21)
[2022-04-08] VITALS (15 sets, daily range): BP systolic 108–131; BP diastolic 52–80; PULSE 67–95; RESP 18–24; TEMP 36.1–36.7; O2SAT 90–98
[2022-04-08] MEDS: ALBUTEROL SULFATE NEB 2.5 MG/3 ML INH INHALATION ×4 (02:16→20:58)
[2022-04-08] MEDS: IPRATROPIUM BR 0.02% INH SOLN 0.5 MG/2.5 ML VIAL INHALATION ×4 (02:16→20:58)
[2022-04-08] MEDS: methylPREDNISolone SOD SUCC 125 MG VIAL 60 MG IV PUSH (05:23)
[2022-04-08 07:47] LABS: Hematocrit 43.2 % (37.0-47.0); Hemoglobin 13.2 g/dL (12.0-15.0); Mean Corpuscular HGB Conc 30.6 g/dl (32-36); Mean Corpuscular Hemoglobin 29.9 pg (26-34); Mean Platelet Volume 10.2 fl (7.4-10.4); Platelet Count Result 296 k/mm3 (150-375); Red Blood Count 4.41 M/mm3 (4.2-5.4); Red Cell Distribution Width 13.2 % (11.5-14.5); White Blood Count 19.4 K/mm3 (4.5-10.0)
[2022-04-08 07:57] LABS: Lactic Acid Reflex 1.7 mmol/L (0.7-2.0)
[2022-04-08 08:01] LABS: Alanine Aminotransferase 44 U/L (6-35); Albumin Level 3.9 g/dL (3.5-5.1); Alkaline Phosphatase 99 U/L (38-126); Anion Gap 4 mmol/L (8-16); Aspartate Amino Transferase 27 U/L (14-36); Bilirubin,Total 0.5 mg/dL (0.2-1.3); Blood Urea Nitrogen 16 mg/dL (7-17); Calcium 9.5 mg/dL (8.4-10.2); Carbon Dioxide 35 mmol/L (22-30); Chloride 100 mmol/L (98-107); Estimated CRCL calculation 102 ml/min; Estimated Glomerular Filt Rate > 60; Glucose 163 mg/dL (65-110); Magnesium 2.5 mg/dL (1.6-2.3); Potassium 4.3 mmol/L (3.4-5.0); Sodium 139 mmol/L (137-145)
[2022-04-08] MEDS: PANTOPRAZOLE 40 MG TABLET PO (08:30)
[2022-04-08] MEDS: IRBESARTAN 75 MG TABLET PO (08:30)
[2022-04-08] MEDS: CYCLOBENZAPRINE HCL 10 MG TABLET PO ×3 (08:30→16:33)
[2022-04-08] MEDS: CITALOPRAM HYDROBROMIDE 20 MG TABLET 40 MG PO (08:30)
[2022-04-08] MEDS: ENOXAPARIN 40 MG/0.4 ML SYRINGE SUB-Q (08:31)
[2022-04-08 09:14] LABS: Band Neutrophils Percent 11 % (0-6); Lymphocytes Absolute Manual 2.52 K/mm3 (1.1-4.5); Monocytes Absolute Manual 0.58 K/mm3 (0.1-0.90); Monocytes Percent Manual 3 % (3-9); Neutrophils Absolute Manual 16.29 K/mm3 (1.7-7.2); Neutrophils Percent Manual 73 % (46-73); Platelet Estimate Adequate (Adequate); Schistocytes None Seen (NORMAL); Total Cells Counted 100
--- NOTE | 2022-04-08 09:30 | PM.IMPN ---
Progress Note: A&P Assessment and Plan (1) Community acquired pneumonia: Code(s): J18.9 - Pneumonia, unspecified organism Status: Acute Assessment and Plan: Chest xray shows bibasilar airspace disease compatible with pneumonia Continue with azithromycin and Rocephin WBC elevated at 19.7 Blood cultures pending Sputum culture pending continue with dual nebulizer treatment, add Pulmozyme Supplemental oxygen, wean to maintain saturation >88% (2) COPD (chronic obstructive pulmonary disease): Code(s): J44.9 - Chronic obstructive pulmonary disease, unspecified Status: Acute Assessment and Plan: Continue with nebulizers. titrate oxygen the patient is typically on oxygen at 2 L per nasal cannula at night and is not usually on it every day. Change solumedrol to prednisone Trend respiratory status supplemental oxygen continued, wean to maintain saturation >88% (3) Hypertension: Code(s): I10 - Essential (primary) hypertension Status: Acute Assessment and Plan: BP 112/52 Continue with irbesartan Trend BP Adjust therapy as indicated (4) Anxiety: Code(s): F41.9 - Anxiety disorder, unspecified Status: Acute Assessment and Plan: Continue with trazodone and Celexa Mood appears stable Plan weaned patient to 3LNC today taught her how to use IS and cornet therapy Time Spent With Patient Time: 53 minutes Time with patient: Greater than 35 minutes Subjective Date/time seen: 04/08/22 09:30 Interval history: 04/08/22929 Patient stated that she was doing okay. She did state that she was feeling a little better today. She is having a cough however it is better than when she came in she also stated that her sputum is more milky color and then her today. She also stated that she uses oxygen mostly at night to sleep. Currently she is on oxygen 30/08. Oxygen has been titrated down to 3 L. she did state that she does get dyspneic and short of breath with walking. We did do the incentive spirometer along with the Cornet and she does have a productive cough. She denies any chest pain, nausea, vomiting, diarrhea, constipation, weakness of the saturations in maintained in the mid 90s with 3 L. 04/07/22? 12:27 This is a 61-year-old female patient who has a history of COPD and continues to smoke cigarettes.? She came to the emergency room with complaints of worsening shortness of breath.? The patient typically wears 2 L per nasal cannula just at night however she has been using the oxygen all day 30/08 continuously over the last 4 days.? The patient had increased her oxygen up to 3 L per nasal cannula over the last few days.? In the emergency room she was increased to 4 L per nasal cannula.? She has had a productive cough of thick sputum with fever and chills.? She also has body aches.? She also complains of weakness.? She has a nebulizer machine at home and she has been using her nebulizers without any relief.? Patient's pulse oximeter was reading 80% in the emergency room.? This increased her O2 saturation to 90%.? Her white blood count 18.9.? The patient stated she has not recently been on any steroids.? Her sodium is 133.? A/B RSV and COVID.? The patient was given albuterol, azithromycin, Rocephin and Solu-Medrol in the emergency room the patient stated that she had had from coughing so much and she was given a Tylenol.? The patient is being admitted for observation status on the date of service of 04/07/2022. Review of Systems Review of Systems: All systems reviewed & are unremarkable except as noted in HPI and below Exam Narrative: General: well-nourished, well-appearing 61-year-old female, sitting up in bed, comfortable, NARD Neuro: awake, alert and oriented x4, speech clear, no focal neuro deficits noted HEENMT: normocephalic, atraumatic, EOMI, sclerae anicteric, moist oral mucosa Res
[2022-04-08 09:32] LABS: Free T4 Free Thyroxine Reflex 1.58 ng/dL (0.78-2.19)
[2022-04-08 10:27] LABS: Total Triiodothyronine (T3) 0.78 NG/ML (0.97-1.69)
[2022-04-08] MEDS: DORNASE ALFA INH SOLN 1 MG/ML 2.5 ML AMP 2.5 MG INHALATION ×2 (10:59→20:58)
[2022-04-08] MEDS: traZODone HCL 50 MG TABLET 100 MG PO (20:22)
[2022-04-09] VITALS (12 sets, daily range): BP systolic 90–119; BP diastolic 55–66; PULSE 83–93; RESP 16–20; TEMP 36.2–36.6; O2SAT 90–96
[2022-04-09] MEDS: IPRATROPIUM BR 0.02% INH SOLN 0.5 MG/2.5 ML VIAL INHALATION ×4 (03:26→21:12)
[2022-04-09] MEDS: ALBUTEROL SULFATE NEB 2.5 MG/3 ML INH INHALATION ×4 (03:26→21:12)
[2022-04-09 06:24] LABS: Basophils Absolute Auto 0.1 K/mm3 (0.0-0.1); Basophils Percent Auto 0.3 % (0.2-1.2); Hematocrit 38.7 % (37.0-47.0); Hemoglobin 11.9 g/dL (12.0-15.0); Immature Granulocyte Absolute 0.23 K/mm3 (0.00-0.031); Lymphocytes Absolute Auto 4.52 K/mm3 (0.9-3.2); Lymphocytes Percent Auto 18.7 % (18.3-44.2); Mean Corpuscular HGB Conc 30.7 g/dl (32-36); Mean Corpuscular Hemoglobin 30.2 pg (26-34); Mean Corpuscular Volume 98.2 fl (80-100); Mean Platelet Volume 9.9 fl (7.4-10.4); Monocytes Absolute Auto 1.5 K/mm3 (0.1-0.6); Monocytes Percent Auto 6.1 % (2.6-8.5); Neutrophils Absolute Auto 17.9 K/mm3 (1.3-6.7); Neutrophils Percent Auto 73.9 % (45.5-73.1); Platelet Count Result 322 k/mm3 (150-375); Red Blood Count 3.94 M/mm3 (4.2-5.4); Red Cell Distribution Width 13.2 % (11.5-14.5); White Blood Count 24.2 K/mm3 (4.5-10.0)
[2022-04-09 06:36] LABS: Alanine Aminotransferase 42 U/L (6-35); Albumin Level 3.4 g/dL (3.5-5.1); Alkaline Phosphatase 90 U/L (38-126); Anion Gap 2 mmol/L (8-16); Aspartate Amino Transferase 24 U/L (14-36); Bilirubin,Total 0.4 mg/dL (0.2-1.3); Blood Urea Nitrogen 22 mg/dL (7-17); Calcium 8.8 mg/dL (8.4-10.2); Carbon Dioxide 31 mmol/L (22-30); Chloride 103 mmol/L (98-107); Estimated CRCL calculation 102 ml/min; Estimated Glomerular Filt Rate > 60; Glucose 119 mg/dL (65-110); Magnesium 2.5 mg/dL (1.6-2.3); Potassium 3.6 mmol/L (3.4-5.0); Sodium 136 mmol/L (137-145)
[2022-04-09] MEDS: DORNASE ALFA INH SOLN 1 MG/ML 2.5 ML AMP 2.5 MG INHALATION (08:09)
[2022-04-09] MEDS: ENOXAPARIN 40 MG/0.4 ML SYRINGE SUB-Q (08:46)
[2022-04-09] MEDS: PANTOPRAZOLE 40 MG TABLET PO (08:46)
[2022-04-09] MEDS: predniSONE 20 MG TABLET 40 MG PO (08:46)
[2022-04-09] MEDS: CYCLOBENZAPRINE HCL 10 MG TABLET PO ×3 (08:46→17:23)
[2022-04-09] MEDS: CITALOPRAM HYDROBROMIDE 20 MG TABLET 40 MG PO (08:46)
--- NOTE | 2022-04-09 11:15 | PM.IMPN ---
Progress Note: A&P Assessment and Plan (1) Community acquired pneumonia: Code(s): J18.9 - Pneumonia, unspecified organism Status: Acute Assessment and Plan: Chest xray from 04/09/2022 shows stable airspace opacities in the right middle lobe consistent with atelectasis versus pneumonia Continue with azithromycin and Rocephin started on 04/07/22, day 3 WBC elevated at 19.7, continuing to trend up at 24.2 probably related to steroids Blood cultures pending Sputum culture many WBC, Few gram Positive bacilli, Rare gram negative bacilli continue with dual nebulizer treatment, discontinue Pulmozyme add guaifenesin Supplemental oxygen, wean to maintain saturation >88% (2) COPD (chronic obstructive pulmonary disease): Code(s): J44.9 - Chronic obstructive pulmonary disease, unspecified Status: Acute Assessment and Plan: Continue with nebulizers. titrate oxygen the patient is typically on oxygen at 2 L per nasal cannula at night and is not usually on it every day. Change solumedrol to prednisone Trend respiratory status supplemental oxygen continued, wean to maintain saturation >88% able to titrate patient to room air satting about 90-92% (3) Hypertension: Code(s): I10 - Essential (primary) hypertension Status: Acute Assessment and Plan: BP 103/57 Continue with irbesartan Trend BP Adjust therapy as indicated (4) Anxiety: Code(s): F41.9 - Anxiety disorder, unspecified Status: Acute Assessment and Plan: Continue with trazodone and Celexa Mood appears stable Plan weaned patient to room air today taught her how to use IS and cornet therapy Time Spent With Patient Time: 59 minutes Time with patient: Greater than 35 minutes Subjective Date/time seen: 04/09/22 1115 Interval history: 04/09/22 1115 Patient stated that she feels worse today. She did state that she was having hard time getting anything up and felt a little bit more wheezy than yesterday. She did also state that she felt like the Pulmozyme was causing her cough to not be is productive. Did put her on guaifenesin. She denies any chest pain, nausea, vomiting, diarrhea or constipation. Oxygen has been titrated to room air at this time however it is kind of borderline at 91%. WBCs are also elevated 24.2 today. Will continue to trend. 04/08/22 0930 Patient stated that she was doing okay. She did state that she was feeling a little better today. She is having a cough however it is better than when she came in she also stated that her sputum is more milky color and then her today. She also stated that she uses oxygen mostly at night to sleep. Currently she is on oxygen 24/7. Oxygen has been titrated down to 3 L. she did state that she does get dyspneic and short of breath with walking. We did do the incentive spirometer along with the Cornet and she does have a productive cough. She denies any chest pain, nausea, vomiting, diarrhea, constipation, weakness of the saturations in maintained in the mid 90s with 3 L. 04/07/22? 12:27 This is a 61-year-old female patient who has a history of COPD and continues to smoke cigarettes.? She came to the emergency room with complaints of worsening shortness of breath.? The patient typically wears 2 L per nasal cannula just at night however she has been using the oxygen all day 24 continuously over the last 4 days.? The patient had increased her oxygen up to 3 L per nasal cannula over the last few days.? In the emergency room she was increased to 4 L per nasal cannula.? She has had a productive cough of thick sputum with fever and chills.? She also has body aches.? She also complains of weakness.? She has a nebulizer machine at home and she has been using her nebulizers without any relief.? Patient's pulse oximeter was reading 80% in the emergency room.? This increased her O2 satur
[2022-04-09] MEDS: guaiFENesin/DEXTROMETHORPHAN 10 ML UDC PO ×2 (12:25→15:57)
[2022-04-09] MEDS: PROMETHAZINE/CODEINE (*CRX) 5 ML SYRUP PO (20:50)
[2022-04-09] MEDS: traZODone HCL 50 MG TABLET 100 MG PO (20:50)
[2022-04-09] MEDS: SODIUM CHLORIDE NASAL GEL 14.1 GM 1 APPLIC NASAL (20:51)
[2022-04-10] VITALS (13 sets, daily range): BP systolic 145; BP diastolic 79; PULSE 79–112; RESP 18–20; TEMP 36.2; O2SAT 87–93
[2022-04-10] MEDS: ALBUTEROL SULFATE NEB 2.5 MG/3 ML INH INHALATION ×3 (02:21→13:33)
[2022-04-10] MEDS: IPRATROPIUM BR 0.02% INH SOLN 0.5 MG/2.5 ML VIAL INHALATION ×3 (02:21→13:33)
[2022-04-10] MEDS: guaiFENesin/DEXTROMETHORPHAN 10 ML UDC PO ×2 (02:47→10:55)
[2022-04-10 07:08] LABS: Basophils Absolute Auto 0.1 K/mm3 (0.0-0.1); Basophils Percent Auto 0.4 % (0.2-1.2); Eosinophils Percent Auto 0.2 % (0-4.4); Hematocrit 38.4 % (37.0-47.0); Hemoglobin 11.7 g/dL (12.0-15.0); Immature Granulocyte Absolute 0.25 K/mm3 (0.00-0.031); Immature Granulocyte Percent A 1.7 % (0-0.5); Lymphocytes Absolute Auto 4.01 K/mm3 (0.9-3.2); Lymphocytes Percent Auto 26.8 % (18.3-44.2); Mean Corpuscular HGB Conc 30.5 g/dl (32-36); Mean Corpuscular Volume 98.5 fl (80-100); Mean Platelet Volume 9.6 fl (7.4-10.4); Monocytes Absolute Auto 1.5 K/mm3 (0.1-0.6); Monocytes Percent Auto 9.9 % (2.6-8.5); Neutrophils Absolute Auto 9.1 K/mm3 (1.3-6.7); Platelet Count Result 330 k/mm3 (150-375); Red Cell Distribution Width 13.3 % (11.5-14.5)
[2022-04-10 07:24] LABS: Alanine Aminotransferase 36 U/L (6-35); Albumin Level 3.2 g/dL (3.5-5.1); Alkaline Phosphatase 104 U/L (38-126); Anion Gap 2 mmol/L (8-16); Aspartate Amino Transferase 22 U/L (14-36); Bilirubin,Total 0.4 mg/dL (0.2-1.3); Blood Urea Nitrogen 23 mg/dL (7-17); Calcium 8.7 mg/dL (8.4-10.2); Carbon Dioxide 36 mmol/L (22-30); Chloride 105 mmol/L (98-107); Estimated CRCL calculation 89 ml/min; Estimated Glomerular Filt Rate > 60; Glucose 143 mg/dL (65-110); Magnesium 2.3 mg/dL (1.6-2.3); Potassium 3.7 mmol/L (3.4-5.0); Sodium 143 mmol/L (137-145)
[2022-04-10] MEDS: ENOXAPARIN 40 MG/0.4 ML SYRINGE SUB-Q (08:30)
[2022-04-10] MEDS: predniSONE 20 MG TABLET 40 MG PO (08:30)
[2022-04-10] MEDS: PROMETHAZINE/CODEINE (*CRX) 5 ML SYRUP PO ×2 (08:30→13:04)
[2022-04-10] MEDS: IRBESARTAN 75 MG TABLET PO (08:31)
[2022-04-10] MEDS: PANTOPRAZOLE 40 MG TABLET PO (08:31)
[2022-04-10] MEDS: CITALOPRAM HYDROBROMIDE 20 MG TABLET 40 MG PO (08:31)
[2022-04-10] MEDS: CYCLOBENZAPRINE HCL 10 MG TABLET PO ×2 (08:31→13:05)
--- NOTE | 2022-04-10 10:00 | PM.DS ---
DS: Admitting Diagnosis Discharge Date 04/10/22 1000 Admitting Diagnosis CAP, COPD DS: Discharge Diagnosis Discharge Diagnosis (1) Community acquired pneumonia: Code(s): J18.9 - Pneumonia, unspecified organism Status: Acute Assessment and Plan: Chest xray from 04/09/2022 shows stable airspace opacities in the right middle lobe consistent with atelectasis versus pneumonia Continue with azithromycin and Rocephin started on 04/07/22, day 3 WBC elevated at 19.7, trending down 15.0 Blood cultures pending Sputum culture H. Influenzae Augmentin continue with dual nebulizer treatment, discontinue Pulmozyme add guaifenesin Supplemental oxygen, wean to maintain saturation >88% (2) COPD (chronic obstructive pulmonary disease): Code(s): J44.9 - Chronic obstructive pulmonary disease, unspecified Status: Acute Assessment and Plan: Continue with nebulizers. titrate oxygen the patient is typically on oxygen at 2 L per nasal cannula at night and is not usually on it every day. Change solumedrol to prednisone Trend respiratory status supplemental oxygen continued, wean to maintain saturation >88% able to titrate patient to room air satting about 90-92% (3) Hypertension: Code(s): I10 - Essential (primary) hypertension Status: Acute Assessment and Plan: BP 145/79 Continue with irbesartan Trend BP Adjust therapy as indicated (4) Anxiety: Code(s): F41.9 - Anxiety disorder, unspecified Status: Acute Assessment and Plan: Continue with trazodone and Celexa Mood appears stable DS: Summary Hospital Course Hospital Course: Patient is a 61-year-old female with a past medical history of COPD, hypertension, anxiety who presented to the ED with complaints of worsening shortness of breath. Patient stated that she typically wears 2 L of oxygen at night however upon arrival patient was noted to have a low saturation and was placed on 4 L nasal cannula. Patient had been weaned to 2 L. White blood cell count did peak at 24.7. Patient did receive steroids and was placed on IV azithromycin ceftriaxone. Blood culture came back with no growth today. Sputum culture came back as H influenzea. Patient is being changed to Augmentin. Currently patient feels better and she would like to be discharged at this time. She denies any chest pain, shortness a breath, nausea, vomiting, diarrhea, weakness or fatigue. Patient did state that she was able to walk to the bathroom without any problems shortness of breath. Patient is requiring 2 L nasal cannula. Home O2 evaluation was performed and showed 1L at rest, and 2L with activity. Patient is stable for discharge for labs and vital signs at this time. Status at Discharge Functional status at discharge: independent ambulation Overall status at discharge: patient is progressing back to baseline Time Spent with Patient Time attestation: Total time spent providing and/or coordinating discharge services:56 minutes Time spent: Greater than 30 minutes Specific discharge activities: Diagnostic testing, chart review, developing a treatment plan, education, care coordination documentation, physical exam, result review Exam Narrative: General: well-nourished, Tired-appearing 61-year-old female, sitting up in bed, comfortable, NARD Neuro: awake, alert and oriented x4, speech clear, no focal neuro deficits noted HEENMT: normocephalic, atraumatic, EOMI, sclerae anicteric, moist oral mucosa Respiratory: Clear to auscultation bilaterally without crackles, rhonchi, or wheezy nonlabored breathing, wet cough is present Cardio: regular rate, regular rhythm with S1-S2 Abdomen: nondistended, normoactive bowel sounds, soft, nontender to palpation Extremities: no edema, erythema, or tenderness to palpation, DP pulses 2+ bilaterally Skin: no rashes or lesions, warm and dry Psych: jose
[2022-04-10] MEDS: AMOXICILLIN/CLAVULANATE K 875-125 MG TAB 1 TABLET PO (10:54)
--- NOTE | 2022-04-10 12:53 | PCRCNOTE ---
Home O2 Eval completed. Patient qualified for 1L NC during rest and 2L NC. RN aware.
== END 2022-04-10 15:05 | disposition home or self-care (01) | DRG 194 ==
LOC: ANHED 11:12 → ANH3MEDSUR 12:47
PROVIDERS: Nurse Practitioner; Admitting Provider Internal Medicine; Emergency Provider Emergency Medicine; PCP Internal Medicine; Referring Provider Nurse Practitioner Gerontology; Visit Provider Nurse Practitioner
DX: J18.9 Pneumonia, unspecified organism (principal); J44.0 Chronic obstructive pulmonary disease with (acute) lower respiratory infection; Z68.41 Body mass index [BMI] 40.0-44.9, adult; J44.1 Chronic obstructive pulmonary disease with (acute) exacerbation; B96.3 Hemophilus influenzae [H. influenzae] as the cause of diseases classified elsewhere; R09.02 Hypoxemia; Z20.822 Contact with and (suspected) exposure to COVID-19; I10 Essential (primary) hypertension; F41.9 Anxiety disorder, unspecified; M19.90 Unspecified osteoarthritis, unspecified site; K21.9 Gastro-esophageal reflux disease without esophagitis; E66.9 Obesity, unspecified; F17.210 Nicotine dependence, cigarettes, uncomplicated; Z87.442 Personal history of urinary calculi; Z90.710 Acquired absence of both cervix and uterus; Z90.722 Acquired absence of ovaries, bilateral
CPT/HCPCS: 36415; 71046; 80053; 83605; 83735; 84439; 84443; 84480; 85025; 87040; 87070; 87077; 87185; 87205; 87637; 93005; 94618; 94640; 94667; 96365; 96367; 96372; 96375; 96376; 99285; A9270; G0378; J0456; J0696; J1650; J2930; J7512

== ENCOUNTER → 2022-04-30 16:59 | Outpatient (CLI) | payer MEDICARE, MEDICAID, SELFPAY ==
--- NOTE | ~2022-04-30 | XR_ITS ---
XR chest 2V DATE: 04/30/2022 17:47 INDICATION: Pneumonia TECHNIQUE: 2 views COMPARISON: 04/10/2019 3P and lateral views FINDINGS: Normal heart size. No hilar or mediastinal enlargement. No pulmonary infiltrate or consolid ation, pleural effusion or pulmonary vascular congestion or pneumothorax is detected. Osteopenia. Lower cervical spine surgical fusion. Degenerative spurring and dextroscoliosis of the th oracic spine. IMPRESSION: No active cardiopulmonary disease Reviewed, dictated and finalized at location A.
== END ==
PROVIDERS: PCP Internal Medicine; Visit Provider Internal Medicine
DX: J18.9 Pneumonia, unspecified organism (principal)
CPT/HCPCS: 71046

== ENCOUNTER 2023-05-03 13:14 | Emergency (ER) | payer MEDICARE, MEDICAID, SELFPAY ==
[2023-05-03 13:24] VITALS: BP 154/83; PULSE 102; RESP 20; TEMP 36.7; O2SAT 90
--- NOTE | 2023-05-03 14:15 | ED.URI ---
HPI - URI/Sore Throat General Chief Complaint: Upper Respiratory Infection Stated Complaint: throat/mouth Source: patient, RN notes reviewed and old records reviewed Mode of arrival: ambulatory Limitations: no limitations History of Present Illness HPI Narrative: 62-year-old female to [facility] with complaint sore throat and single sore in mouth x3 days. Patient endorses recent exposure to strep throat. Patient denies cough, fever. Patient able to tolerate fluids by mouth. Patient is hypertensive, tachycardic with O2 sat 90% on room air upon arrival. Patient advised for transfer to emergency department for higher level of care. Patient states my blood pressure is high and my heart is beating fast because I am not feeling good. I have an oxygen tank in my car and 90% without my oxygen is nothing I'm worried with . Patient declined transfer and signed AMA for transfer. Related Data Home Medications Medication Instructions Recorded Confirmed albuterol sulfate 90 mcg/actuation 1 inh inhalation Q4H PRN Shortness 03/17/20 04/07/22 aerosol inhaler Of Breath cyclobenzaprine 10 mg tablet 10 mg PO TID 03/17/20 04/07/22 omeprazole magnesium [Prilosec OTC] 40 mg PO DAILY 03/17/20 04/07/22 trazodone 100 mg tablet 100 mg PO HS 03/17/20 04/07/22 irbesartan 75 mg tablet 75 mg PO DAILY 03/24/20 04/07/22 melatonin 05/03/23 Allergies Allergy/AdvReac Type Severity Reaction Status Date / Time No Known Allergies Allergy Verified 05/03/23 13:21 Review of Systems Review of Systems: All systems reviewed & are unremarkable except as noted in HPI and below Constitutional: Constitutional: Reports as per HPI, Denies chills, Denies fever(s), Denies headache(s) and Denies poor appetite Eyes: Eyes: Reports no additional eye complaints ENT: Reports sore throat and Reports other ( Oral lesion) Cardiovascular: Cardiovascular: Reports no additional cardiovascular complaints, Denies chest pain and Denies dyspnea Respiratory: Respiratory: Reports no additional respiratory complaints, Denies cough and Denies dyspnea Musculoskeletal: Musculoskeletal: Reports no additional musculoskeletal complaints Neurologic: Reports system reviewed and no additional complaints, except as documented Psychiatric: Psychiatric: Reports no additional psychiatric complaints PMFSH Past Medical History Medical History Anxiety Arthritis Arthritis of carpometacarpal (CMC) joint of left thumb Arthritis of hand, right Congestion of nasal sinus Constipation De Quervain's tenosynovitis, left Ganglion cyst Extracted from wrist GERD (gastroesophageal reflux disease) Hypertension Kidney stones Obesity Trigger finger, left ring finger Urinary frequency Wears glasses Weight gain Wheezing Surgical History Surgical History History of bilateral tubal ligation History of carpal tunnel release History of cervical spinal surgery 2 vertebrae in neck replaced 2013 History of hand surgery Ring trigger finger 2015, Dr. Correa History of hysterectomy with bilateral oophorectomy History of left knee surgery Dr. Correa, 1997 History of shoulder surgery Right shoulder 2003, collar bone Dr. Correa History of surgery fistula repair [id number] History of surgery on wrist left wrist ganglion cyst removal Family History Family History Sibling Family history of lung cancer Other Family history of allergic disorder Family history of malignant neoplasm Hypertension Lung disease Social History Social History Social History: The patient states that she smokes every day typically but has not smoked in the last week due to her congestion. She is single and has 2 children . She is disabled. Code status ful
== END 2023-05-03 14:57 | disposition home or self-care (01) ==
PROVIDERS: Emergency Provider Nurse Practitioner Family; PCP Internal Medicine
DX: K06.8 Other specified disorders of gingiva and edentulous alveolar ridge (principal); J06.9 Acute upper respiratory infection, unspecified; F17.210 Nicotine dependence, cigarettes, uncomplicated; F12.90 Cannabis use, unspecified, uncomplicated; K21.9 Gastro-esophageal reflux disease without esophagitis; I10 Essential (primary) hypertension; E66.9 Obesity, unspecified; Z68.36 Body mass index [BMI] 36.0-36.9, adult
CPT/HCPCS: 87081; 87804; 87880; 99213; G0463

== ENCOUNTER 2023-10-02 11:15 | Emergency (ER) | payer MEDICARE, MEDICAID, SELFPAY ==
[2023-10-02 11:34] VITALS: BP 152/103; PULSE 100; RESP 20; TEMP 36.6; O2SAT 94
--- NOTE | 2023-10-02 11:49 | ED.URI ---
HPI - URI/Sore Throat General Chief Complaint: Upper Respiratory Infection Stated Complaint: cough/mucus History of Present Illness HPI Narrative: PATIENT PRESENTS WITH INCREASED COUGH PRODUCTIVE OF WHITE MUCUS NO FEVER NO SHORTNESS OF BREATH NO CHEST PAIN. PATIENT STATES SHE HAS A HISTORY OF COPD AND HAS BEEN TAKING HER MEDICATIONS PRESCRIBED BUT HAS NOT STARTED USING HER HOME NEBULIZER MACHINE. Related Data Home Medications Medication Instructions Recorded Confirmed albuterol sulfate 90 mcg/actuation 1 inh inhalation Q4H PRN Shortness 03/17/20 04/07/22 aerosol inhaler Of Breath cyclobenzaprine 10 mg tablet 10 mg PO TID 03/17/20 04/07/22 omeprazole magnesium [Prilosec OTC] 40 mg PO DAILY 03/17/20 04/07/22 trazodone 100 mg tablet 100 mg PO HS 03/17/20 04/07/22 irbesartan 75 mg tablet 75 mg PO DAILY 03/24/20 04/07/22 melatonin 05/03/23 citalopram 40 mg tablet mg 10/02/23 meloxicam 15 mg tablet mg 10/02/23 Allergies Allergy/AdvReac Type Severity Reaction Status Date / Time No Known Allergies Allergy Verified 05/03/23 13:21 Review of Systems Review of Systems: CONSTITUTIONAL: DENIES CHILLS, OR SWEATS. REPORTS FEVER AND GENERALIZED BODY ACHES EYES: DENIES VISUAL CHANGES, REDNESS, OR DISCHARGE. ENT: DENIES OTALGIA. REPORTS NASAL CONGESTION RUNNY NOSE AND SORE THROAT CARDIOVASCULAR: DENIES CHEST PAIN, PALPITATIONS, OR EDEMA. RESPIRATORY: DENIES DYSPNEA. REPORTS OCCASIONAL COUGH GASTROINTESTINAL: DENIES ABDOMINAL PAIN, NAUSEA, VOMITING, OR DIARRHEA. GENITOURINARY: DENIES DYSURIA OR HEMATURIA. SKIN: DENIES RASH OR ITCHING. MUSCULOSKELETAL: DENIES BACK PAIN, JOINT PAIN, OR MYALGIA. REPORTS GENERALIZED BODY ACHES NEUROLOGIC: DENIES HEADACHE, NUMBNESS, OR WEAKNESS. PSYCHIATRIC: DENIES ANXIETY OR DEPRESSION. [facility] Past Medical History Medical History Anxiety Arthritis Arthritis of carpometacarpal (CMC) joint of left thumb Arthritis of hand, right Congestion of nasal sinus Constipation De Quervain's tenosynovitis, left Ganglion cyst Extracted from wrist GERD (gastroesophageal reflux disease) Hypertension Kidney stones Obesity Trigger finger, left ring finger Urinary frequency Wears glasses Weight gain Wheezing Surgical History Surgical History History of bilateral tubal ligation History of carpal tunnel release History of cervical spinal surgery 2 vertebrae in neck replaced 2014 History of hand surgery Ring trigger finger 2015, Dr. Correa History of hysterectomy with bilateral oophorectomy History of left knee surgery Dr. Correa, 1997 History of shoulder surgery Right shoulder 2003, collar bone Dr. Correa History of surgery fistula repair [id number] History of surgery on wrist left wrist ganglion cyst removal Family History Family History Sibling Family history of lung cancer Other Family history of allergic disorder Family history of malignant neoplasm Hypertension Lung disease Social History Social History Social History: The patient states that she smokes every day typically but has not smoked in the last week due to her congestion. She is single and has 2 children . She is disabled. Code status full code Years smoked: 45 Smoking status: Current some day smoker Tobacco type: cigarettes Alcohol intake: never Substance use: current Substance use type: marijuana Lack of Transportation: No Lack of Food: Never True Current Housing: I Have Housing Concerned About Future Housing: No Difficulty Paying Gas/Electric Bills: No Difficulty Paying for Meds: No Currently Unemployed: No Education: Decline to Answer Difficulty w/ Childcare or Family Care: No Living arrangements: alone Gender identity
== END 2023-10-02 12:04 | disposition home or self-care (01) ==
PROVIDERS: Emergency Provider Nurse Practitioner Family; PCP Internal Medicine
DX: J40 Bronchitis, not specified as acute or chronic (principal); F17.210 Nicotine dependence, cigarettes, uncomplicated; F12.90 Cannabis use, unspecified, uncomplicated; K21.9 Gastro-esophageal reflux disease without esophagitis; I10 Essential (primary) hypertension; E66.9 Obesity, unspecified; Z68.35 Body mass index [BMI] 35.0-35.9, adult; M18.12 Unilateral primary osteoarthritis of first carpometacarpal joint, left hand; M19.041 Primary osteoarthritis, right hand
CPT/HCPCS: 99213; G0463

== ENCOUNTER 2023-11-19 17:17 | Emergency (ER) | payer MEDICARE, MEDICAID, SELFPAY ==
--- NOTE | ~2023-11-19 | XR_ITS ---
EXAMINATION: XR chest 2V Exam Date/Time: 11/19/2023 18:06 CDT HISTORY: cough, sob, hx COPD Comparison: 04/30/2022. RESULT: Lines, tubes, and devices: None. Lungs and pleura: Clear. Cardiomediastinal silhouette: Stable. Other: No acute osseous or upper abdominal finding. IMPRESSION: No acute cardiopulmonary process. Reviewed, dictated and finalized at location K.
--- NOTE | 2023-11-19 17:45 | ED.URI ---
HPI - URI/Sore Throat General Chief Complaint: Upper Respiratory Infection Stated Complaint: Trouble Breathing Source: patient Mode of arrival: ambulatory Limitations: no limitations History of Present Illness HPI Narrative: 63 y/o female with hx COPD and chronic respiratory failure, presented for c/o increased cough, shortness of breath with exertion, and chest tightness for about 2 weeks. States she needs a steroid. Speaks full sentences. Says she has appointment with pulm 12/04. Currently denies palpitations, lethargy, n/v/d/f/c. Smokes 1ppd. Of note, pt's O2 89% on RA. Taking off her NC frequently to 'save it for the walk to the car.' Also states she gets down to 80% RA at home. Related Data Home Medications Medication Instructions Recorded Confirmed albuterol sulfate 90 mcg/actuation 1 inh inhalation Q4H PRN Shortness 03/17/20 04/07/22 aerosol inhaler Of Breath cyclobenzaprine 10 mg tablet 10 mg PO TID 03/17/20 04/07/22 omeprazole magnesium [Prilosec OTC] 40 mg PO DAILY 03/17/20 04/07/22 trazodone 100 mg tablet 100 mg PO HS 03/17/20 04/07/22 irbesartan 75 mg tablet 75 mg PO DAILY 03/24/20 04/07/22 melatonin 05/03/23 citalopram 40 mg tablet mg 10/02/23 meloxicam 15 mg tablet mg 10/02/23 Allergies Allergy/AdvReac Type Severity Reaction Status Date / Time No Known Allergies Allergy Verified 05/03/23 13:21 Review of Systems Review of Systems: CONSTITUTIONAL: Denies body aches, fever, chills, or sweats. ENT: Denies rhinorrhea, congestion, sore throat, or otalgia. CARDIOVASCULAR: Denies chest pain, palpitations, or edema. RESPIRATORY: Reports cough, sob, wheezing. GASTROINTESTINAL: Denies abdominal pain, nausea, vomiting, or diarrhea. NEUROLOGIC: Denies headache, numbness, tingling, or weakness. All systems reviewed & are unremarkable except as noted in HPI and below PMFSH Past Medical History Medical History Anxiety Arthritis Arthritis of carpometacarpal (CMC) joint of left thumb Arthritis of hand, right Congestion of nasal sinus Constipation De Quervain's tenosynovitis, left Ganglion cyst Extracted from wrist GERD (gastroesophageal reflux disease) Hypertension Kidney stones Obesity Trigger finger, left ring finger Urinary frequency Wears glasses Weight gain Wheezing Surgical History Surgical History History of bilateral tubal ligation History of carpal tunnel release History of cervical spinal surgery 2 vertebrae in neck replaced 2013 History of hand surgery Ring trigger finger 2015, Dr. Correa History of hysterectomy with bilateral oophorectomy History of left knee surgery Dr. Correa, 1997 History of shoulder surgery Right shoulder 2003, collar bone Dr. Correa History of surgery fistula repair [id number] History of surgery on wrist left wrist ganglion cyst removal Family History Family History Sibling Family history of lung cancer Other Family history of allergic disorder Family history of malignant neoplasm Hypertension Lung disease Social History Social History Social History: The patient states that she smokes every day typically but has not smoked in the last week due to her congestion. She is single and has 2 children . She is disabled. Code status full code Years smoked: 45 Smoking status: Current some day smoker Tobacco type: cigarettes Alcohol intake: never Substance use: current Substance use type: marijuana Lack of Transportation: No Lack of Food: Never True Current Housing: I Have Housing Concerned About Future Housing: No Difficulty Paying Gas/Electric Bills: No Difficulty Paying for Meds: No Currently Unemployed: No Education: Decline to Answer Difficulty w/ Childcare or Family Care:
[2023-11-19 17:49] VITALS: BP 153/97; PULSE 112; RESP 16; TEMP 36.8; O2SAT 89
[2023-11-19 17:50] VITALS: BP 153/97; PULSE 112; RESP 16; TEMP 36.8; O2SAT 98
== END 2023-11-19 19:14 | disposition left against medical advice (07) ==
PROVIDERS: Emergency Provider Nurse Practitioner Family; PCP Internal Medicine
DX: J44.1 Chronic obstructive pulmonary disease with (acute) exacerbation (principal); I10 Essential (primary) hypertension; F17.210 Nicotine dependence, cigarettes, uncomplicated
CPT/HCPCS: 71046; 99213; G0463